=== PATIENT | male | born 1930 | race Caucasian/White ===

== ENCOUNTER 2018-04-27 07:22 | Emergency (ER) | payer MEDICARE ==
[2018-04-27 07:26] VITALS: TEMP 97.9
--- NOTE | 2018-04-27 08:03 | ED ---
General Adult HPI - General Chief complaint: ENT Stated complaint: Sore throat Time Seen by Provider: 04/27/18 07:41 Source: patient, family, RN notes reviewed Mode of arrival: ambulatory Limitations: no limitations - History of Present Illness Initial comments: Patient is a pleasant 87-year-old male presenting to the emergency Department with complaints of throat irritation. Patient states 3 days ago he was swallowing a large pill and felt it get stuck. Patient did get it loosened up with saltwater. Patient has felt irritation since that time. Patient has also noticed some increase in mucus production. Patient is able to tolerate oral intake. Patient does not have dyspnea. No history of similar symptoms previously. - Related Data Home Medications Medication Instructions Recorded Confirmed Aspirin 325 mg PO DAILY 04/15/15 04/27/18 Atenolol [Tenormin] 50 mg PO BID 04/15/15 04/27/18 Atorvastatin [Lipitor] 40 mg PO DAILY 04/15/15 04/27/18 Benazepril HCl [Lotensin] 20 mg PO DAILY 04/15/15 04/27/18 Cholecalciferol [Vitamin D3] 1,000 unit PO DAILY 04/15/15 04/27/18 Clopidogrel [Plavix] 75 mg PO DAILY 04/15/15 04/27/18 Isosorbide Mononitrate ER [Imdur] 30 mg PO DAILY 04/15/15 04/27/18 Multivitamin [Men's Multi-Vitamin] 1 tab PO DAILY 04/15/15 04/27/18 Niacin [Niaspan] 1,000 mg PO DAILY 04/15/15 04/27/18 Omeprazole [PriLOSEC] 20 mg PO DAILY 04/15/15 04/27/18 Vitamin E 1,000 unit PO DAILY 04/15/15 04/27/18 amLODIPine [Norvasc] 5 mg PO BID 04/15/15 04/27/18 glipiZIDE [Glucotrol] 5 mg PO DAILY 04/15/15 04/27/18 Nitroglycerin Sl Tabs [Nitrostat] 0.4 mg SUBLINGUAL Q5M PRN 05/14/16 04/27/18 hydrALAZINE HCL 25 mg PO BID 04/27/18 04/27/18 Allergies Allergy/AdvReac Type Severity Reaction Status Date / Time No Known Allergies Allergy Verified 04/27/18 07:25 Review of Systems ROS Statement: Those systems with pertinent positive or pertinent negative responses have been documented in the HPI. ROS Other: All systems not noted in ROS Statement are negative. Constitutional: Denies: fever Eyes: Denies: eye pain ENT: Reports: throat pain Respiratory: Denies: cough, dyspnea Cardiovascular: Denies: chest pain Endocrine: Denies: fatigue Gastrointestinal: Denies: abdominal pain Genitourinary: Denies: dysuria Musculoskeletal: Denies: back pain Skin: Denies: rash Neurological: Denies: weakness Past Medical History Past Medical History: Coronary Artery Disease (CAD), Diabetes Mellitus, GERD/ Reflux, Hyperlipidemia, Hypertension, Myocardial Infarction ([place]) Last Myocardial Infarction Date:: UNSURE History of Any Multi-Drug Resistant Organisms: None Reported Past Surgical History: Coronary Bypass/CABG Additional Past Surgical History / Comment(s): STATES 3 OR 4 BYPASS Past Anesthesia/Blood Transfusion Reactions: No Reported Reaction Past Psychological History: No Psychological Hx Reported Smoking Status: Former smoker Past Alcohol Use History: None Reported Past Drug Use History: None Reported General Exam Limitations: no limitations General appearance: alert, in no apparent distress Head exam: Present: atraumatic Eye exam: Present: normal appearance, PERRL ENT exam: Present: normal oropharynx Neck exam: Present: normal inspection, full ROM. Absent: tenderness, meningismus, lymphadenopathy Respiratory exam: Present: normal lung sounds bilaterally. Absent: respiratory distress, chest wall tenderness Cardiovascular Exam: Present: regular rate, normal rhythm, systolic murmur GI/Abdominal exam: Present: soft. Absent: tenderness Extremities exam: Present: normal inspection. Absent: pedal edema, calf tenderness Neurological exam: Present: alert Psychiatric exam: Present: normal affect, normal mood Skin exam: Present: normal color Course Vital Signs 04/27/18 07:22 Temperature 97.9 F Pulse Rate 70 Respiratory 22 Rate Blood Pressure 190/75 O2 Sat by Pulse 96 Oximetry Medical Decision Making - Medical Decision Making Patient reevaluated and resting comfortably in chair next to bed. Patient and updated on results and need for follow-up. - Radiology Data Radiology results: image reviewed (Soft tissue neck x-ray showed no acute process. Chest x-ray shows COPD. Chronic increased interstitial markings.) Disposition Clinical Impression: Esophageal abrasion Disposition: HOME SELF-CARE Condition: Stable Instructions: Esophageal Foreign Body (ED) Additional Instructions: Please follow-up with primary care physician and ENT next week. Return for difficulty breathing, not tolerating fluids, worsening symptoms or other concerns. Is patient prescribed a controlled substance at d/c from ED?: No Referrals: Charli Ramsay DO [Primary Care Provider] - 1-2 days Jairo Sexton MD [STAFF PHYSICIAN] - 1-2 days Time of Disposition: 08:57
--- NOTE | 2018-04-27 08:29 | XR ---
EXAMINATION TYPE: XR chest 2V DATE OF EXAM: 04/27/2018 HISTORY: Congestion. REFERENCE: Previous study dated 12/30/2013. FINDINGS: There has been a midline sternotomy. Heart size is upper limits of normal. There are coarse increased markings throughout the chest. These are chronic. The lungs are overinflated. There is armando e blunting of the left CP angle. The difficult to exclude a small left effusion. IMPRESSION: 1. COPD. 2. CHRONIC INCREASED MARKINGS MAY REFLECT CHRONIC BRONCHITIS. 3. I CANNOT EXCLUDE A SMALL LEFT EFFUSION.
--- NOTE | 2018-04-27 08:31 | XR ---
EXAMINATION TYPE: XR soft tissue neck , 2 VIEWS DATE OF EXAM ORDERED: 04/27/2018 HISTORY: congestion. COMPARISON: None. FINDINGS: Soft tissue views of the neck are unremarkable. Prevertebral soft tissues are normal. The epiglottis is normal. There is some calcification of the thyroid cartilage. There are degenerative ch anges in the cervical spine. IMPRESSION: UNREMARKABLE SOFT TISSUE VIEWS OF THE NECK.
[2018-04-27] MEDS ORDERED: DEXAMETHASONE SOD PHOSPHATE 10 MG/ML 1 ML VIAL IM STA (08:52)
[2018-04-27 09:14] VITALS: BP 173/79; PULSE 66; RESP 16
== END 2018-04-27 09:15 | disposition home or self-care (01) ==
LOC: EC 07:22
DX: S27.818A Other injury of esophagus (thoracic part), initial encounter (principal); I25.10 Atherosclerotic heart disease of native coronary artery without angina pectoris; E11.9 Type 2 diabetes mellitus without complications; E78.5 Hyperlipidemia, unspecified; I10 Essential (primary) hypertension; I25.2 Old myocardial infarction; Z95.1 Presence of aortocoronary bypass graft; Z87.891 Personal history of nicotine dependence; Z79.02 Long term (current) use of antithrombotics/antiplatelets; Z79.82 Long term (current) use of aspirin; Z79.84 Long term (current) use of oral hypoglycemic drugs; Z79.899 Other long term (current) drug therapy; X58.XXXA Exposure to other specified factors, initial encounter
CPT/HCPCS: 70360; 71046; 99283; 96372; J1100

== ENCOUNTER 2018-04-29 20:01 | Emergency (ER) | payer MEDICARE ==
--- NOTE | 2018-04-29 21:30 | XR ---
EXAMINATION TYPE: XR chest 2V DATE OF EXAM: 04/29/2018 COMPARISON: 04/27/2018 HISTORY: Chest pain TECHNIQUE: Frontal and lateral views of the chest are obtained. FINDINGS: There is coarsening of pulmonary interstitial markings. There is slight blunting of costop hrenic angles. Heart size is normal. There are sternal wires. Thoracic aorta is atheromatous. IMPRESSION: Small pleural effusions. Pulmonary fibrotic changes. No gross heart failure. No signific ant change.
[2018-04-29] MEDS ORDERED: AMOXICILLIN 500 MG CAP PO STA (22:42)
--- NOTE | 2018-04-29 22:47 | ED ---
General Adult HPI - General Chief complaint: Upper Respiratory Infection Stated complaint: sore throat & some swelling-revisit Time Seen by Provider: 04/29/18 21:00 Source: patient, RN notes reviewed Mode of arrival: ambulatory Limitations: no limitations - History of Present Illness Initial comments: This is an 87-year-old male who presents emergency Department complaining of a sore throat for 4 days. Patient states it's worse in the morning than at night. Patient also states he has quite a bit of drainage such that in the morning he coughs up a lot of sputum. Patient denies any difficulty breathing or shortness of breath. Patient denies any chest pain. Patient denies any fever or chills. Patient states that sore throat has been ongoing and not improving so decided come to the emergency department. Patient is somewhat of a poor historian seems to get a lot of information incorrect and the as to correct. - Related Data Home Medications Medication Instructions Recorded Confirmed Aspirin 325 mg PO DAILY 04/15/15 04/27/18 Atenolol [Tenormin] 50 mg PO BID 04/15/15 04/27/18 Atorvastatin [Lipitor] 40 mg PO DAILY 04/15/15 04/27/18 Benazepril HCl [Lotensin] 20 mg PO DAILY 04/15/15 04/27/18 Cholecalciferol [Vitamin D3] 1,000 unit PO DAILY 04/15/15 04/27/18 Clopidogrel [Plavix] 75 mg PO DAILY 04/15/15 04/27/18 Isosorbide Mononitrate ER [Imdur] 30 mg PO DAILY 04/15/15 04/27/18 Multivitamin [Men's Multi-Vitamin] 1 tab PO DAILY 04/15/15 04/27/18 Niacin [Niaspan] 1,000 mg PO DAILY 04/15/15 04/27/18 Omeprazole [PriLOSEC] 20 mg PO DAILY 04/15/15 04/27/18 Vitamin E 1,000 unit PO DAILY 04/15/15 04/27/18 amLODIPine [Norvasc] 5 mg PO BID 04/15/15 04/27/18 Nitroglycerin Sl Tabs [Nitrostat] 0.4 mg SUBLINGUAL Q5M PRN 05/14/16 04/27/18 hydrALAZINE HCL 25 mg PO BID 04/27/18 04/27/18 glipiZIDE XL [Glucotrol Xl] 5 mg PO DAILY 04/29/18 04/29/18 Previous Rx's Medication Instructions Recorded Amoxicillin 500 mg PO Q8H #30 capsule 04/29/18 Allergies Allergy/AdvReac Type Severity Reaction Status Date / Time No Known Allergies Allergy Verified 04/29/18 22:43 Review of Systems ROS Statement: Those systems with pertinent positive or pertinent negative responses have been documented in the HPI. ROS Other: All systems not noted in ROS Statement are negative. Past Medical History Past Medical History: Coronary Artery Disease (CAD), Diabetes Mellitus, GERD/ Reflux, Hyperlipidemia, Hypertension, Myocardial Infarction ([place]) Last Myocardial Infarction Date:: UNSURE History of Any Multi-Drug Resistant Organisms: None Reported Past Surgical History: Coronary Bypass/CABG Additional Past Surgical History / Comment(s): STATES 3 OR 4 BYPASS Past Anesthesia/Blood Transfusion Reactions: No Reported Reaction Past Psychological History: No Psychological Hx Reported Smoking Status: Former smoker Past Alcohol Use History: None Reported Past Drug Use History: None Reported General Exam - General Exam Comments Initial Comments: GENERAL: Patient is well-developed and well-nourished. Patient is nontoxic and well- hydrated and is in no acute distress. ENT: Neck is soft and supple. No significant lymphadenopathy is noted. Oropharynx is erythematous. Moist mucous membranes. Neck has full range of motion without eliciting any pain. EYES: The sclera were anicteric and conjunctiva were pink and moist. Extraocular movements were intact and pupils were equal round and reactive to light. Eyelids were unremarkable. PULMONARY: Unlabored respirations. Good breath sounds bilaterally. No audible rales rhonchi or wheezing was noted. CARDIOVASCULAR: There is a regular rate and rhythm without any murmurs gallops or rubs. SKIN: Skin is clear with no lesions or rashes and otherwise unremarkable. NEUROLOGIC: Patient is alert and oriented 2. Cranial nerves II through XII are grossly intact. Motor and sensory are also intact. Normal speech, volume and content. Symmetrical smile. MUSCULOSKELETAL: Normal extremities with adequate strength and full range of motion. . LYMPHATICS: No significant lymphadenopathy is noted PSYCHIATRIC: Normal psychiatric evaluation. Normal interpersonal interactions appears functionally intact in deals appropriately with others. No signs of depression. No signs of anxiety. Limitations: no limitations Course Vital Signs 04/29/18 20:35 Temperature 97.9 F Pulse Rate 69 Respiratory 20 Rate Blood Pressure 160/65 O2 Sat by Pulse 95 Oximetry Medical Decision Making - Lab Data Lab Results 04/29/18 Range/Units 20:41 Group A Strep Rapid Negative (Negative) Disposition Clinical Impression: Pharyngitis Disposition: HOME SELF-CARE Condition: Good Instructions: Pharyngitis (ED) Prescriptions: Amoxicillin 500 mg PO Q8H #30 capsule Is patient prescribed a controlled substance at d/c from ED?: No Referrals: Charli Ramsay DO [Primary Care Provider] - 1-2 days Time of Disposition: 22:47
[2018-04-29 23:09] VITALS: BP 161/73; PULSE 61; RESP 18; TEMP 97.1
== END 2018-04-29 23:14 | disposition home or self-care (01) ==
LOC: EC 20:01
DX: J02.9 Acute pharyngitis, unspecified (principal); E78.5 Hyperlipidemia, unspecified; I10 Essential (primary) hypertension; I25.10 Atherosclerotic heart disease of native coronary artery without angina pectoris; E11.9 Type 2 diabetes mellitus without complications; K21.9 Gastro-esophageal reflux disease without esophagitis; Z87.891 Personal history of nicotine dependence; Z79.02 Long term (current) use of antithrombotics/antiplatelets; Z79.82 Long term (current) use of aspirin; Z79.84 Long term (current) use of oral hypoglycemic drugs; Z79.899 Other long term (current) drug therapy
CPT/HCPCS: 71046; 87081; 87430; 99283

== ENCOUNTER 2018-05-04 11:50 | Inpatient (IN) | payer MEDICARE ==
[2018-05-04] MEDS ORDERED: ASPIRIN 81 MG PO STA (12:16)
[2018-05-04] MEDS ORDERED: SODIUM CHLORIDE 0.9% 1,000 ML IV STA (12:16)
--- NOTE | 2018-05-04 12:21 | ED ---
General Adult HPI - General Chief complaint: Chest Pain Stated complaint: SOB Source: patient Mode of arrival: wheelchair Limitations: physical limitation - History of Present Illness Initial comments: Dictation was produced using [employer] dictation software. please excuse any grammatical, word or spelling errors. Chief Complaint: 87-year-old male past medical history of coronary artery disease, dyslipidemia, hypertension, NM presents with chest pressure History of Present Illness: Patient reports that he's been having this chest pressure for approximately 3 weeks. Patient reports that he was here 4 days ago for chief complaint of sore throat and thought to be caused by swallowing a large pill. Patient reports that he has chest pressure that radiates across the anterior portion of his chest. Denies any relation to the shoulders or the neck. Denies any associated diaphoresis. Patient has history of CABG. Patient has multiple comorbidities. The ROS documented in this emergency department record has been reviewed and confirmed by me. Those systems with pertinent positive or negative responses have been documented in the HPI. All other systems are other negative and/or noncontributory. - Related Data Home Medications Medication Instructions Recorded Confirmed Aspirin 325 mg PO DAILY 04/15/15 05/04/18 Atenolol [Tenormin] 50 mg PO BID 04/15/15 05/04/18 Atorvastatin [Lipitor] 40 mg PO DAILY 04/15/15 05/04/18 Benazepril HCl [Lotensin] 20 mg PO DAILY 04/15/15 05/04/18 Cholecalciferol [Vitamin D3] 1,000 unit PO DAILY 04/15/15 05/04/18 Clopidogrel [Plavix] 75 mg PO DAILY 04/15/15 05/04/18 Isosorbide Mononitrate ER [Imdur] 30 mg PO DAILY 04/15/15 05/04/18 Multivitamin [Men's Multi-Vitamin] 1 tab PO DAILY 04/15/15 05/04/18 Niacin [Niaspan] 1,000 mg PO DAILY 04/15/15 05/04/18 Omeprazole [PriLOSEC] 20 mg PO BID 04/15/15 05/04/18 Vitamin E 1,000 unit PO DAILY 04/15/15 05/04/18 amLODIPine [Norvasc] 5 mg PO BID 04/15/15 05/04/18 Nitroglycerin Sl Tabs [Nitrostat] 0.4 mg SUBLINGUAL Q5M PRN 05/14/16 05/04/18 hydrALAZINE HCL 25 mg PO BID 04/27/18 05/04/18 glipiZIDE XL [Glucotrol Xl] 5 mg PO DAILY 04/29/18 05/04/18 Previous Rx's Medication Instructions Recorded Amoxicillin 500 mg PO Q8H #30 capsule 04/29/18 Allergies Allergy/AdvReac Type Severity Reaction Status Date / Time No Known Allergies Allergy Verified 05/04/18 12:32 Review of Systems ROS Statement: Those systems with pertinent positive or pertinent negative responses have been documented in the HPI. ROS Other: All systems not noted in ROS Statement are negative. Past Medical History Past Medical History: Coronary Artery Disease (CAD), Diabetes Mellitus, GERD/ Reflux, Hyperlipidemia, Hypertension, Myocardial Infarction ([place]) Last Myocardial Infarction Date:: UNSURE History of Any Multi-Drug Resistant Organisms: None Reported Past Surgical History: Coronary Bypass/CABG Additional Past Surgical History / Comment(s): STATES 3 OR 4 BYPASS Past Anesthesia/Blood Transfusion Reactions: No Reported Reaction Past Psychological History: No Psychological Hx Reported Smoking Status: Former smoker Past Alcohol Use History: None Reported Past Drug Use History: None Reported General Exam - General Exam Comments Initial Comments: PHYSICAL EXAM: General Impression: Alert and oriented x3, not in acute distress HEENT: Normocephalic atraumatic, extra-ocular movements intact, pupils equal and reactive to light bilaterally, mucous membranes moist. Cardiovascular: Heart regular rate and rhythm, S1&S2 audible, no murmurs, rubs or gallops Chest: Lungs clear to auscultation bilaterally, no rhonchi, no wheeze, no rales Abdomen: Bowel sounds present, abdomen soft, non-tender, non-distended, no organomegaly Musculoskeletal: Pulses present and equal in all extremities, no peripheral edema Motor: Power 5/5 bilaterally, no focal deficits noted Neurological: CN II-XII grossly intact, no focal motor or sensory deficits noted Skin: Intact with no visualized rashes Psych: Normal affect and mood Limitations: physical limitation Course Vital Signs 05/04/18 05/04/18 11:53 12:58 Temperature 97.8 F Pulse Rate 74 63 Respiratory 20 17 Rate Blood Pressure 176/72 170/72 O2 Sat by Pulse 95 96 Oximetry Medical Decision Making - Medical Decision Making ED course: 87-year-old male with chief complaint of chest pressure. Vital signs upon arrival shows elevated blood pressure 176/72, pulse vital signs within acceptable limits. Laboratory evaluation obtained. Patient has normal CBC. Coag Panel Unremarkable. Metabolic Panel Shows Findings within Acceptable Limits. Patient Has Troponin of 0.034. Prematurity Peptide Is 10,600. Patient Denies History of Weak Heart or Congestive Heart Failure. Furthermore, Patient Denies Ever Having Had an Ultrasound of His Heart. Clinical Presentation Consistent with New-Onset CHF Likely Secondary to Chronic Ischemia. Patient Be Admitted to Internal Medicine with Consultation to Cardiology. Patient Given 40 Mg of IV Lasix. Patient Be Admitted for Gentle Diuresis, Echocardiogram and cardiology consultation. EKG interpretation: Ventricular rate 68. Normal sinus rhythm. WI interval 202 , QRS 122, QTC 484 No WI prolongation, no QTC prolongation, no ST or T-wave changes noted. EKG compared to 2013 showing nonspecific changes. - Lab Data Result diagrams: 05/04/18 12:15 05/04/18 12:15 Lab Results 05/04/18 05/04/18 05/04/18 Range/Units 12:15 12:15 12:15 WBC 6.8 (3.8-10.6) k/uL RBC 3.77 L (4.30-5.90) m/uL Hgb 11.8 L (13.0-17.5) gm/dL Hct 36.9 L (39.0-53.0) % MCV 97.7 (80.0-100.0) fL MCH 31.4 (25.0-35.0) pg MCHC 32.1 (31.0-37.0) g/dL RDW 14.3 (11.5-15.5) % Plt Count 163 (150-450) k/uL Neutrophils % 61 % Lymphocytes % 20 % Monocytes % 12 % Eosinophils % 4 % Basophils % 0 % Neutrophils # 4.1 (1.3-7.7) k/uL Lymphocytes # 1.3 (1.0-4.8) k/uL Monocytes # 0.8 (0-1.0) k/uL Eosinophils # 0.3 (0-0.7) k/uL Basophils # 0.0 (0-0.2) k/uL Hypochromasia Slight PT (9.0-12.0) sec INR (<1.2) APTT (22.0-30.0) sec Sodium 142 (137-145) mmol/L Potassium 4.4 (3.5-5.1) mmol/L Chloride 114 H (98-107) mmol/L Carbon Dioxide 19 L (22-30) mmol/L Anion Gap 9 mmol/L BUN 26 H (9-20) mg/dL Creatinine 1.50 H (0.66-1.25) mg/dL Est GFR (CKD-EPI)AfAm 47 (>60 ml/min/1.73 sqM) Est GFR (CKD-EPI)NonAf 41 (>60 ml/min/1.73 sqM) Glucose 108 H (74-99) mg/dL Calcium 9.6 (8.4-10.2) mg/dL Magnesium 2.1 (1.6-2.3) mg/dL Total Bilirubin 1.0 (0.2-1.3) mg/dL AST 46 (17-59) U/L ALT 44 (21-72) U/L Alkaline Phosphatase 89 (38-126) U/L Total Creatine Kinase 129 (55-170) U/L CK-MB (CK-2) 2.1 (0.0-2.4) ng/mL CK-MB (CK-2) Rel Index 1.6 Troponin I 0.034 (0.000-0.034) ng/mL NT-Pro-B Natriuret Pep pg/mL Total Protein 6.9 (6.3-8.2) g/dL Albumin 3.9 (3.5-5.0) g/dL 05/04/18 05/04/18 Range/Units 12:15 12:15 WBC (3.8-10.6) k/uL RBC (4.30-5.90) m/uL Hgb (13.0-17.5) gm/dL Hct (39.0-53.0) % MCV (80.0-100.0) fL MCH (25.0-35.0) pg MCHC (31.0-37.0) g/dL RDW (11.5-15.5) % Plt Count (150-450) k/uL Neutrophils % % Lymphocytes % % Monocytes % % Eosinophils % % Basophils % % Neutrophils # (1.3-7.7) k/uL Lymphocytes # (1.0-4.8) k/uL Monocytes # (0-1.0) k/uL Eosinophils # (0-0.7) k/uL Basophils # (0-0.2) k/uL Hypochromasia PT 11.4 (9.0-12.0) sec INR 1.2 H (<1.2) APTT 24.3 (22.0-30.0) sec Sodium (137-145) mmol/L Potassium (3.5-5.1) mmol/L Chloride (98-107) mmol/L Carbon Dioxide (22-30) mmol/L Anion Gap mmol/L BUN (9-20) mg/dL Creatinine (0.66-1.25) mg/dL Est GFR (CKD-EPI)AfAm (>60 ml/min/1.73 sqM) Est GFR (CKD-EPI)NonAf (>60 ml/min/1.73 sqM) Glucose (74-99) mg/dL Calcium (8.4-10.2) mg/dL Magnesium (1.6-2.3) mg/dL Total Bilirubin (0.2-1.3) mg/dL AST (17-59) U/L ALT (21-72) U/L Alkaline Phosphatase (38-126) U/L Total Creatine Kinase (55-170) U/L CK-MB (CK-2) (0.0-2.4) ng/mL CK-MB (CK-2) Rel Index Troponin I (0.000-0.034) ng/mL NT-Pro-B Natriuret Pep 98365 pg/mL Total Protein (6.3-8.2) g/dL Albumin (3.5-5.0) g/dL Disposition Clinical Impression: Congestive heart failure Disposition: ADMITTED IP TO THIS HOSP Condition: Fair Referrals: Charli Ramsay DO [Primary Care Provider] - 1-2 days Time of Disposition: 13:40
[2018-05-04 12:30] LABS: Basophils % (A) 0 %; Eosinophils # (A) 0.3 k/uL (0-0.7); Eosinophils % (A) 4 %; HCT 36.9 % (39.0-53.0); HGB 11.8 gm/dL (13.0-17.5); Hypochromasia Slight; Lymphocytes # (A) 1.3 k/uL (1.0-4.8); Lymphocytes % (A) 20 %; MCH 31.4 pg (25.0-35.0); MCHC 32.1 g/dL (31.0-37.0); MCV 97.7 fL (80.0-100.0); Mean Platelet Volume 8.7; Monocytes # (A) 0.8 k/uL (0-1.0); Monocytes % (A) 12 %; Neutrophils # (A) 4.1 k/uL (1.3-7.7); Neutrophils % (A) 61 %; Platelet Count 163 k/uL (150-450); RBC 3.77 m/uL (4.30-5.90); RDW 14.3 % (11.5-15.5); WBC 6.8 k/uL (3.8-10.6)
[2018-05-04 12:41] LABS: Albumin 3.9 g/dL (3.5-5.0); Calcium 9.6 mg/dL (8.4-10.2); Magnesium 2.1 mg/dL (1.6-2.3); Potassium 4.4 mmol/L (3.5-5.1); Total Protein 6.9 g/dL (6.3-8.2)
[2018-05-04 12:43] LABS: INR 1.2 (<1.2); Partial Thromboplastin Time 24.3 sec (22.0-30.0); Prothrombin Time 11.4 sec (9.0-12.0)
--- NOTE | 2018-05-04 13:05 | XR ---
EXAMINATION TYPE: XR chest 2V DATE OF EXAM: 05/04/2018 HISTORY: Chest Pain. REFERENCE: Previous study dated 04/29/2018. FINDINGS: There has been a previous midline sternotomy. The lungs are overinflated. The heart is upper limits of normal in size. There is a small left effusi on. There is chronic interstitial change. There has developed a questionable left upper lobe infiltra te. IMPRESSION: 1. COPD. 2. BORDERLINE CARDIOMEGALY. 3. QUESTIONABLE LEFT UPPER LOBE INFILTRATE. 4. SMALL LEFT EFFUSION.
[2018-05-04 13:11] LABS: Creatine Kinase MB 2.1 ng/mL (0.0-2.4); Troponin I 0.034 ng/mL (0.000-0.034)
[2018-05-04] MEDS ORDERED: FUROSEMIDE 10 MG/ML 4 ML VIAL IV STA (13:21)
[2018-05-04] MEDS ORDERED: NALOXONE 0.4 MG/ML 1 ML VIAL IV PRN (13:41)
[2018-05-04] MEDS ORDERED: HEPARIN SODIUM,PORCINE 5,000 UNIT/ML 1 ML VIAL SQ SCH (16:00)
[2018-05-04] MEDS ORDERED: NITROGLYCERIN SL TABS 0.4 MG TAB SUBLINGUAL PRN (17:46)
[2018-05-04 18:30] VITALS: BMI 27.3
--- NOTE | 2018-05-04 19:00 | P.HPIM ---
History of Present Illness Patient is a pleasant 87-year-old gentleman shortness of breath not a very good historian I'm unable to get a clear history whether patient has orthopnea and PND. Patient will also comparing of chest pressure-like sensation across the chest lasted for a few hours nonradiating and not associated with food not is nonpleuritic in nature no associated diaphoresis. Patient has a highly elevated BNP does not have any significant JVD but does have severe pedal edema , chest x-ray did not show any significant infiltrate consistent with CHF does have with the pleural effusion patient denied any significant cough patient denied any fever chills. Review of Systems REVIEW OF SYSTEMS: CONSTITUTIONAL: No fever, no malaise, no fatigue. HEENT: No recent visual problems or hearing problems. Denied any sore throat. CARDIOVASCULAR: no palpitations, no syncope. PULMONARY: no hemoptysis. GASTROINTESTINAL: No diarrhea, no nausea, no vomiting, no abdominal pain. Normoactive bowel sounds. NEUROLOGICAL: No headaches, no weakness, no numbness. HEMATOLOGICAL: Denies any bleeding or petechiae. GENITOURINARY: Denies any burning micturition, frequency, or urgency. MUSCULOSKELETAL/RHEUMATOLOGICAL: Denies any joint pain, swelling, or any muscle pain. ENDOCRINE: Denies any polyuria or polydipsia. The rest of the 14-point review of systems is negative. Past Medical History Past Medical History: Coronary Artery Disease (CAD), Diabetes Mellitus, GERD/ Reflux, Hyperlipidemia, Hypertension, Myocardial Infarction ([place]) Last Myocardial Infarction Date:: 1949 History of Any Multi-Drug Resistant Organisms: None Reported Past Surgical History: Coronary Bypass/CABG Additional Past Surgical History / Comment(s): STATES 3 OR 4 BYPASS Past Anesthesia/Blood Transfusion Reactions: No Reported Reaction Past Psychological History: No Psychological Hx Reported Smoking Status: Former smoker Past Alcohol Use History: None Reported Past Drug Use History: None Reported - Past Family History Brother(s) Family Medical History: Myocardial Infarction ([place]) Medications and Allergies Home Medications Medication Instructions Recorded Confirmed Type Aspirin 325 mg PO DAILY 04/15/15 05/04/18 History Atenolol [Tenormin] 50 mg PO BID 04/15/15 05/04/18 History Atorvastatin [Lipitor] 40 mg PO DAILY 04/15/15 05/04/18 History Benazepril HCl [Lotensin] 20 mg PO DAILY 04/15/15 05/04/18 History Cholecalciferol [Vitamin D3] 1,000 unit PO DAILY 04/15/15 05/04/18 History Clopidogrel [Plavix] 75 mg PO DAILY 04/15/15 05/04/18 History Isosorbide Mononitrate ER [Imdur] 30 mg PO DAILY 04/15/15 05/04/18 History Multivitamin [Men's Multi-Vitamin] 1 tab PO DAILY 04/15/15 05/04/18 History Niacin [Niaspan] 1,000 mg PO DAILY 04/15/15 05/04/18 History Omeprazole [PriLOSEC] 20 mg PO BID 04/15/15 05/04/18 History Vitamin E 1,000 unit PO DAILY 04/15/15 05/04/18 History amLODIPine [Norvasc] 5 mg PO BID 04/15/15 05/04/18 History Nitroglycerin Sl Tabs [Nitrostat] 0.4 mg SUBLINGUAL Q5M PRN 05/14/16 05/04/18 History hydrALAZINE HCL 25 mg PO BID 04/27/18 05/04/18 History Amoxicillin 500 mg PO Q8H #30 capsule 04/29/18 05/04/18 Rx glipiZIDE XL [Glucotrol Xl] 5 mg PO DAILY 04/29/18 05/04/18 History Allergies Allergy/AdvReac Type Severity Reaction Status Date / Time No Known Allergies Allergy Verified 05/04/18 12:32 Physical Exam Vitals: Vital Signs Temp Pulse Pulse Resp BP BP Pulse Ox 05/04/18 18:14 96.8 F L 79 18 178/81 95 05/04/18 16:29 68 17 169/84 96 05/04/18 15:13 61 17 154/61 95 05/04/18 14:10 96.8 F L 79 18 178/81 95 05/04/18 13:55 62 17 169/70 95 05/04/18 12:58 63 17 170/72 96 05/04/18 11:53 97.8 F 74 20 176/72 95 Intake and Output 05/04/18 05/04/18 05/04/18 06:59 14:59 22:59 Intake Total 1000 Balance 1000 Intake: Amount of Fluid Infused ( 1000 ml) Other: Weight 79.379 kg PHYSICAL EXAMINATION: GENERAL: The patient is alert and oriented x3, not in any acute distress. Well developed, well nourished. HEENT: Pupils are round and equally reacting to light. EOMI. No scleral icterus. No conjunctival pallor. Normocephalic, atraumatic. No pharyngeal erythema. No thyromegaly. CARDIOVASCULAR: S1 and S2 present. No murmurs, rubs, or gallops. PULMONARY: Chest is clear to auscultation, no wheezing or crackles. His no JVD there may be an S3. ABDOMEN: Soft, nontender, nondistended, normoactive bowel sounds. No palpable organomegaly. MUSCULOSKELETAL: No joint swelling or deformity. EXTREMITIES: No cyanosis, clubbing, significant 3+ pitting pedal edema NEUROLOGICAL: Gross neurological examination did not reveal any focal deficits. SKIN: No rashes. Results CBC & Chem 7: 05/04/18 12:15 05/04/18 12:15 Labs: Abnormal Lab Results - Last 24 Hours (Table) 05/04/18 05/04/18 05/04/18 Range/Units 12:15 12:15 12:15 RBC 3.77 L (4.30-5.90) m/uL Hgb 11.8 L (13.0-17.5) gm/dL Hct 36.9 L (39.0-53.0) % INR 1.2 H (<1.2) Chloride 114 H (98-107) mmol/L Carbon Dioxide 19 L (22-30) mmol/L BUN 26 H (9-20) mg/dL Creatinine 1.50 H (0.66-1.25) mg/dL Glucose 108 H (74-99) mg/dL Thrombosis Risk Factor Assmnt - Choose All That Apply Any of the Below Risk Factors Present?: No Each Risk Factor Represents 3 Points: Age 75 years or older Thrombosis Risk Factor Assessment Total Risk Factor Score: 3 Thrombosis Risk Factor Assessment Level: Moderate Risk Assessment and Plan Plan: -Shortness of breath: Etiology is unknown patient was comparing of chest pain we 'll obtain troponins and EKGs cardiology was consulted. -Chest pain: Management as mentioned above -Volume overload with pedal edema although no clearcut JVD will obtain echocardiogram patient has a highly elevated BNP patient may have congestive heart failure or right-sided heart failure since his wall only overloaded are good and give him Lasix check his creatinine. -Renal failure: Mostly chronic kidney disease stage III, his previous creatinine was around 1.2 now around 1.5 and may be a competent of acute renal failure as well repeat the basic metabolic profile tomorrow if renal failure is secondary to volume overload expected to improve with Lasix. 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
[2018-05-04] MEDS ORDERED: hydrALAZINE HCL 25 MG TAB PO PRN (19:15)
[2018-05-04] MEDS: amLODIPine 5 MG TAB PO SCH (20:31)
[2018-05-04] MEDS: ATENOLOL 50 MG TAB PO SCH (20:31)
[2018-05-04] MEDS: hydrALAZINE HCL 25 MG TAB PO SCH (20:31)
[2018-05-04] MEDS: FAMOTIDINE 20 MG TAB PO SCH (20:31)
[2018-05-04] MEDS ORDERED: TEMAZEPAM 15 MG CAP PO PRN (20:58)
[2018-05-04 21:18] LABS: Glucose,Whole Blood 89 mg/dL (75-99)
[2018-05-04] MEDS: INSULIN ASPART 100 UNIT/ML 1 ML 10 ML VIAL SQ SCH (21:19)
[2018-05-04] MEDS: FUROSEMIDE 10 MG/ML 4 ML VIAL IV SCH (23:22)
[2018-05-04] MEDS: HEPARIN SODIUM,PORCINE 5,000 UNIT/ML 1 ML VIAL SQ SCH (23:22)
[2018-05-05] MEDS ORDERED: IPRATROPIUM-ALBUTEROL 3 ML NEB INHALATION PRN (01:18)
[2018-05-05 02:45] LABS: ABG Base Excess -6.2 mmol/L; ABG HCO3 19 mmol/L (21-25); ABG Oxygen Saturation 94.4 % (94-97); ABG PCO2 33 mmHg (35-45); ABG PH 7.37 (7.35-7.45); ABG PO2 68 mmHg (83-108); ABG TCO2 20 mmol/L (19-24)
[2018-05-05 05:46] LABS: Glucose,Whole Blood 67 mg/dL (75-99)
[2018-05-05] MEDS: INSULIN ASPART 100 UNIT/ML 1 ML 10 ML VIAL SQ SCH ×4 (06:00→20:54)
[2018-05-05 06:06] LABS: Glucose,Whole Blood 85 mg/dL (75-99)
[2018-05-05 06:49] LABS: Calcium 9.3 mg/dL (8.4-10.2); Potassium 4.5 mmol/L (3.5-5.1)
[2018-05-05] MEDS ORDERED: PANTOPRAZOLE 40 MG TABLET PO SCH (07:30)
[2018-05-05] MEDS: FUROSEMIDE 10 MG/ML 4 ML VIAL IV SCH ×3 (07:53→22:49)
[2018-05-05] MEDS: amLODIPine 5 MG TAB PO SCH ×2 (07:53→20:56)
[2018-05-05] MEDS: HEPARIN SODIUM,PORCINE 5,000 UNIT/ML 1 ML VIAL SQ SCH ×3 (07:53→22:50)
[2018-05-05] MEDS: VITAMIN E (DL,TOCOPHERYL ACET) 400 UNIT CAP PO SCH (07:54)
[2018-05-05] MEDS: ASPIRIN 81 MG PO SCH (07:54)
[2018-05-05] MEDS: ATENOLOL 50 MG TAB PO SCH ×2 (07:54→20:57)
[2018-05-05] MEDS: ATORVASTATIN 40 MG TAB PO SCH (07:54)
[2018-05-05] MEDS: CHOLECALCIFEROL 1,000 UNIT TAB PO SCH (07:55)
[2018-05-05] MEDS: FAMOTIDINE 20 MG TAB PO SCH ×2 (07:55→20:56)
[2018-05-05] MEDS: CLOPIDOGREL 75 MG TAB PO SCH (07:55)
[2018-05-05] MEDS: ISOSORBIDE MONONITRATE ER 30 MG TAB.ER.24H PO SCH (07:56)
[2018-05-05] MEDS: NIACIN TR 500 MG CAPSULE.ER PO SCH (07:56)
[2018-05-05] MEDS: hydrALAZINE HCL 25 MG TAB PO SCH ×2 (07:56→21:00)
[2018-05-05] MEDS ORDERED: LISINOPRIL 20 MG TAB PO SCH (09:00)
[2018-05-05] MEDS ORDERED: ASPIRIN 325 MG TAB PO SCH (09:00)
[2018-05-05 11:36] LABS: Glucose,Whole Blood 69 mg/dL (75-99)
[2018-05-05 11:59] LABS: Glucose,Whole Blood 96 mg/dL (75-99)
[2018-05-05] MEDS: MULTIVITAMINS, THERA 1 EACH TAB PO SCH (13:25)
--- NOTE | 2018-05-05 14:40 | CONS ---
CONSULTATION Mr. Goodman is an 87-year-old male who presented with symptoms of progressive dyspnea and tightness in the chest has been going on for the last few weeks. He was noted to be in congestive heart failure on presentation. He denies any PND nor orthopnea, but he has noted worsening peripheral edema. He denies any dizziness or palpitation and no syncope. His coronary risk factors include diabetes, hypertension and hyperlipidemia. He has been coughing greenish sputum. He has a known history of coronary artery disease with prior myocardial infarction and coronary artery bypass grafting. MEDICATION: At home includes hydralazine 25 mg twice a day, glipizide 5 mg daily, Norvasc 5 mg twice a day, omeprazole, Niaspan, isosorbide mononitrate 30 mg daily, Plavix 75 mg daily, benazepril 20 mg daily, atenolol 50 mg twice a day, aspirin. REVIEW OF SYSTEMS: RESPIRATORY SYSTEM: He had dyspnea on exertion and a cough. No wheezing. GI SYSTEM: No recent GI bleed. No peptic ulcer disease. SYSTEM: No dysuria or hematuria. NERVOUS SYSTEM: No stroke or seizure. PHYSICAL EXAMINATION: He is an 87-year-old male, alert, no apparent distress. Blood pressure running in the 160s to 170s. HEAD: Normocephalic. EYES: Sclerae anicteric. NECK: Good upstroke. No bruit. LUNGS: A few crackles at the bases. HEART: Regular rate and rhythm. S1, S2. No S3 with systolic murmur. No diastolic murmur. No rub. ABDOMEN: Soft, nontender. Positive bowel sounds. EXTREMITIES: +1 to 2 edema bilaterally. LAB DATA: Lab data revealed a BUN and creatinine of 23 and 1.54, potassium 4.5. Hemoglobin of 11.8. His troponin 0.034, 0.035 [place] 0.045[place] [id number]. His EKG revealed a sinus mechanism, left axis deviation with left bundle branch block. His chest x-ray has revealed small effusion with questionable infiltrate. IMPRESSION: 1. Progressive symptoms of dyspnea with element of congestive heart failure. The evaluation of left ventricular systolic function is not available to me at this point. 2. History of coronary artery disease. 3. Mild elevation of troponin, most likely presenting a type 2 event. 4. Questionable pneumonia. 5. Hypertension. 6. Hyperlipidemia. 7. History of esophageal strictures. 8. Chronic kidney disease. RECOMMENDATION: From the cardiac standpoint, I will obtain echocardiogram with Doppler. Patient has been on IV Lasix and will follow his renal function closely. I will adjust his antihypertensive regimen, increase his level of activity and depending on his progress, further recommendation will be made. Thank you for this consult. We will follow with you. SARAN / AILEEN: [id number] /
--- NOTE | 2018-05-05 14:55 | P.PN ---
Subjective 87-year-old admitted with acute hypoxic respiratory failure secondary to CHF exacerbation patient the respiratory status as well as in the last night because of which obtained an ABG which showed hypoxic respiratory failure consulted pulmonary. Patient the significantly improved since last night to today morning continue with IV Lasix patient urinated quite a bit little edema improved patient is feeling better today Constitutional: Denied any fatigue denied any fever. Cardio vascular: denied any chest pain, palpitations Gastrointestinal denied any nausea vomiting Pulmonary: Denied any shortness of breath cough Neurologic denied any new focal deficits Objective - Vital Signs Vital signs: Vital Signs Temp 97.5 F L 05/05/18 12:00 Pulse 70 05/05/18 12:00 Resp 20 05/05/18 12:00 BP 166/70 05/05/18 12:00 Pulse Ox 94 L 05/05/18 12:00 Intake & Output 05/04/18 05/05/18 05/05/18 18:59 06:59 18:59 Intake Total 1000 840 240 Output Total 1200 150 Balance 1000 -360 90 Weight 79.379 kg 79.5 kg Intake: Amount of Fluid Infused ( 1000 ml) Oral 840 240 Output: Urine 1200 150 Other: Voiding Method Urinal Urinal # Voids 2 1 - Exam PHYSICAL EXAMINATION: GENERAL: The patient is alert and oriented x3, not in any acute distress. Well developed, well nourished. HEENT: Pupils are round and equally reacting to light. EOMI. No scleral icterus. No conjunctival pallor. Normocephalic, atraumatic. No pharyngeal erythema. No thyromegaly. CARDIOVASCULAR: S1 and S2 present. No murmurs, rubs, or gallops. PULMONARY: Chest is clear to auscultation, no wheezing or crackles. His no JVD there may be an S3. ABDOMEN: Soft, nontender, nondistended, normoactive bowel sounds. No palpable organomegaly. MUSCULOSKELETAL: No joint swelling or deformity. EXTREMITIES: No cyanosis, clubbing, or pedal edema improved NEUROLOGICAL: Gross neurological examination did not reveal any focal deficits. SKIN: No rashes. - Labs CBC & Chem 7: 05/04/18 12:15 05/05/18 06:17 Labs: Abnormal Lab Results - Last 24 Hours (Table) 05/04/18 05/05/18 05/05/18 Range/Units 18:59 00:19 02:40 ABG pCO2 33 L (35-45) mmHg ABG pO2 68 L (83-108) mmHg ABG HCO3 19 L (21-25) mmol/L Chloride (98-107) mmol/L Carbon Dioxide (22-30) mmol/L BUN (9-20) mg/dL Creatinine (0.66-1.25) mg/dL POC Glucose (mg/dL) (75-99) mg/dL Troponin I 0.035 H* 0.045 H* (0.000-0.034) ng/mL 05/05/18 05/05/18 05/05/18 Range/Units 05:45 06:17 11:34 ABG pCO2 (35-45) mmHg ABG pO2 (83-108) mmHg ABG HCO3 (21-25) mmol/L Chloride 113 H (98-107) mmol/L Carbon Dioxide 20 L (22-30) mmol/L BUN 23 H (9-20) mg/dL Creatinine 1.54 H (0.66-1.25) mg/dL POC Glucose (mg/dL) 67 L 69 L (75-99) mg/dL Troponin I (0.000-0.034) ng/mL Assessment and Plan Plan: -Shortness of breath: Congestive heart failure chronic systolic dysfunction with acute exacerbation ejection fraction is not available -Chest pain: Management as mentioned above -Volume overload with pedal edema although no clearcut JVD will obtain echocardiogram patient has a highly elevated BNP patient may have congestive heart failure or right-sided heart failure intubating echocardiogram -Renal failure: Mostly chronic kidney disease stage III, his previous creatinine was around 1.2 now around 1.5 patient's creatinine remained stable at 1. 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
[2018-05-05 16:25] LABS: Glucose,Whole Blood 99 mg/dL (75-99)
[2018-05-05 20:52] LABS: Glucose,Whole Blood 119 mg/dL (75-99)
[2018-05-05] MEDS: MELATONIN 5 MG TABLET PO SCH (21:20)
[2018-05-06 06:10] LABS: Glucose,Whole Blood 78 mg/dL (75-99)
[2018-05-06] MEDS: INSULIN ASPART 100 UNIT/ML 1 ML 10 ML VIAL SQ SCH ×4 (06:10→21:28)
[2018-05-06 06:50] LABS: Calcium 9.1 mg/dL (8.4-10.2); Potassium 4.1 mmol/L (3.5-5.1)
[2018-05-06] MEDS: amLODIPine 5 MG TAB PO SCH ×2 (08:49→20:30)
[2018-05-06] MEDS: HEPARIN SODIUM,PORCINE 5,000 UNIT/ML 1 ML VIAL SQ SCH ×3 (08:49→23:02)
[2018-05-06] MEDS: FUROSEMIDE 10 MG/ML 4 ML VIAL IV SCH ×2 (08:49→20:29)
[2018-05-06] MEDS: ATORVASTATIN 40 MG TAB PO SCH (08:50)
[2018-05-06] MEDS: ATENOLOL 50 MG TAB PO SCH ×2 (08:50→20:30)
[2018-05-06] MEDS: ASPIRIN 81 MG PO SCH (08:50)
[2018-05-06] MEDS: CLOPIDOGREL 75 MG TAB PO SCH (08:51)
[2018-05-06] MEDS: CHOLECALCIFEROL 1,000 UNIT TAB PO SCH (08:51)
[2018-05-06] MEDS: FAMOTIDINE 20 MG TAB PO SCH ×2 (08:52→20:30)
[2018-05-06] MEDS: ISOSORBIDE MONONITRATE ER 30 MG TAB.ER.24H PO SCH (08:53)
[2018-05-06] MEDS: VITAMIN E (DL,TOCOPHERYL ACET) 400 UNIT CAP PO SCH (08:53)
[2018-05-06] MEDS: hydrALAZINE HCL 25 MG TAB PO SCH ×2 (08:53→20:30)
[2018-05-06] MEDS: NIACIN TR 500 MG CAPSULE.ER PO SCH (08:53)
[2018-05-06] MEDS: MULTIVITAMINS, THERA 1 EACH TAB PO SCH (08:54)
--- NOTE | 2018-05-06 10:24 | ECHOF ---
Referral Reason:CHF MEASUREMENTS -------- HEIGHT: 170.2 cm WEIGHT: 83.5 kg BP: 136/63 RVIDd: 3.5 cm (< 3.3) IVSd: 1.3 cm (0.6 - 1.1) LVIDd: 4.6 cm (3.9 - 5.3) LVPWd: 1.2 cm (0.6 - 1.1) IVSs: 1.6 cm LVIDs: 3.2 cm LVPWs: 2.0 cm LA Diam: 4.1 cm (2.7 - 3.8) LAESV Index (A-L): 30.35 ml/m Ao Diam: 3.4 cm (2.0 - 3.7) AV Cusp: 0.9 cm (1.5 - 2.6) MV EXCURSION: 12.039 mm (> 18.000) MV EF SLOPE: 42 mm/s (70 - 150) EPSS: 0.7 cm AV maxP.42 mmHg AV meanP.73 mmHg RAP: 15.00 mmHg RVSP: 55.29 mmHg FINDINGS -------- This was a technically adequate study. The left ventricular size is normal. There is mild concentric left ventricular hypertrophy. Overa ll left ventricular systolic function is low-normal with, an EF between 50 - 55 %. The right ventricle is mildly enlarged. LA is midly dilated 29-33ml/m2. The right atrium is normal in size. There is moderate aortic valve sclerosis. Trace amount of aortic regurgitation. There is mild ao rtic stenosis present. Peak/mean gradient across the Aortic Valve is 35.42mmHg / 17.73mmHg. The mitral valve leaflets are mildly thickened. Mild mitral annular calcification present. Modera te mitral regurgitation is present. Mild tricuspid regurgitation present. There is moderate to severe pulmonary hypertension. The rig ht ventricular systolic pressure, as measured by Doppler, is 55.29mmHg. Moderate pulmonic regurgitation. The aortic root size is normal. The inferior vena cava is dilated with no significant inspiratory collapse which is consistent estima kwabena right atrial pressure of >15 mmHg. There is no pericardial effusion. Small Pleural Effusion. CONCLUSIONS -------- 1. This was a technically adequate study. 2. The left ventricular size is normal. 3. There is mild concentric left ventricular hypertrophy. 4. Overall left ventricular systolic function is low-normal with, an EF between 50 - 55 %. 5. The right ventricle is mildly enlarged. 6. LA is midly dilated 29-33ml/m2. 7. The right atrium is normal in size. 8. There is moderate aortic valve sclerosis. 9. Trace amount of aortic regurgitation. 10. There is mild aortic stenosis present. 11. Peak/mean gradient across the Aortic Valve is 35.42mmHg / 17.73mmHg. 12. The mitral valve leaflets are mildly thickened. 13. Mild mitral annular calcification present. 14. Moderate mitral regurgitation is present. 15. Mild tricuspid regurgitation present. 16. There is moderate to severe pulmonary hypertension. 17. The right ventricular systolic pressure, as measured by Doppler, is 55.29mmHg. 18. Moderate pulmonic regurgitation. 19. The aortic root size is normal. 20. The inferior vena cava is dilated with no significant inspiratory collapse which is consistent es timated right atrial pressure of >15 mmHg. 21. There is no pericardial effusion. 22. Small Pleural Effusion. WINDOW [employer]OR INSTALLER: Tena Garrett RDCS
[2018-05-06 11:10] LABS: Glucose,Whole Blood 143 mg/dL (75-99)
--- NOTE | 2018-05-06 12:34 | P.CNPUL ---
History of Present Illness Consult date: 05/06/18 Reason for consult: dyspnea, hypoxemia, abnormal CXR/CT Chief complaint: Shortness of breath/heart failure History of present illness: Pulmonary consult dated 05/06/2018 87-year-old male who presents to the emergency department with complaints of shortness of breath. He has a history of COPD hyperlipidemia hypertension and myocardial infarction. He apparently told the ER physician in addition to shortness of breath he had chest pain. It apparently been going on for about 3 weeks prior to admission. In addition he complained of a sore throat. He apparently complained that he swallowed a large pill which is what caused the sore throat. In addition, he complained of shortness of breath. When he went into see the patient, his primary issue is that of shortness of breath which he blames on heart failure. He is improved. He told us that he was diagnosed as having heart failure. Since beginning Lasix, the patient has urinated quite a bit and his breathing has been much better. He would like to be discharged home he tells us. He denies any significant cough or phlegm production. There is no fever or chills. No nausea vomiting or diarrhea. Currently not having any chest pain or chest discomfort. He actually looks rather well. 2 family members are with him at the bedside. He apparently has a history of CAD, diabetes, GERD, hyperlipidemia, hypertension and myocardial infarction. He is also status post bypass grafting. He does admit to prior smoking history of about 25-30 years at less than one pack a day. Review of Systems A 12 point review of system is positive for shortness of breath. He apparently also told the emergency room physician that he had chest pain and pressure. That is no longer an issue. Past Medical History Past Medical History: Coronary Artery Disease (CAD), Diabetes Mellitus, GERD/ Reflux, Hyperlipidemia, Hypertension, Myocardial Infarction ([place]) Last Myocardial Infarction Date:: 1949 History of Any Multi-Drug Resistant Organisms: None Reported Past Surgical History: Coronary Bypass/CABG Additional Past Surgical History / Comment(s): STATES 3 OR 4 BYPASS Past Anesthesia/Blood Transfusion Reactions: No Reported Reaction Past Psychological History: No Psychological Hx Reported Smoking Status: Former smoker Past Alcohol Use History: None Reported Past Drug Use History: None Reported - Past Family History Brother(s) Family Medical History: Myocardial Infarction ([place]) Medications and Allergies Home Medications Medication Instructions Recorded Confirmed Type Aspirin 325 mg PO DAILY 04/15/15 05/04/18 History Atenolol [Tenormin] 50 mg PO BID 04/15/15 05/04/18 History Atorvastatin [Lipitor] 40 mg PO DAILY 04/15/15 05/04/18 History Benazepril HCl [Lotensin] 20 mg PO DAILY 04/15/15 05/04/18 History Cholecalciferol [Vitamin D3] 1,000 unit PO DAILY 04/15/15 05/04/18 History Clopidogrel [Plavix] 75 mg PO DAILY 04/15/15 05/04/18 History Isosorbide Mononitrate ER [Imdur] 30 mg PO DAILY 04/15/15 05/04/18 History Multivitamin [Men's Multi-Vitamin] 1 tab PO DAILY 04/15/15 05/04/18 History Niacin [Niaspan] 1,000 mg PO DAILY 04/15/15 05/04/18 History Omeprazole [PriLOSEC] 20 mg PO BID 04/15/15 05/04/18 History Vitamin E 1,000 unit PO DAILY 04/15/15 05/04/18 History amLODIPine [Norvasc] 5 mg PO BID 04/15/15 05/04/18 History Nitroglycerin Sl Tabs [Nitrostat] 0.4 mg SUBLINGUAL Q5M PRN 05/14/16 05/04/18 History hydrALAZINE HCL 25 mg PO BID 04/27/18 05/04/18 History Amoxicillin 500 mg PO Q8H #30 capsule 04/29/18 05/04/18 Rx glipiZIDE XL [Glucotrol Xl] 5 mg PO DAILY 04/29/18 05/04/18 History Allergies Allergy/AdvReac Type Severity Reaction Status Date / Time No Known Allergies Allergy Verified 05/04/18 12:32 Physical Exam Osteopathic Statement: *. No significant issues noted on an osteopathic structural exam other than those noted in the History and Physical/Consult. Vitals: Vital Signs Temp Pulse Resp BP Pulse Ox 05/06/18 09:45 19 95 05/06/18 08:00 96.9 F L 62 18 164/72 97 05/06/18 04:00 97 F L 60 18 136/63 96 05/06/18 00:00 97.6 F 62 18 148/67 93 L 07/22/18 20:00 97.6 F 61 20 129/69 93 L 05/05/18 16:24 95 05/05/18 15:48 97 F L 63 18 166/71 94 L Intake and Output 05/05/18 05/06/18 05/06/18 22:59 06:59 14:59 Intake Total 240 240 Output Total 400 1000 320 Balance -160 -1000 -80 Intake: Oral 240 240 Output: Urine 400 1000 320 Other: Voiding Method Urinal Urinal # Voids 1 1 Weight 83.5 kg No acute distress, oriented 3. Nasal O2 in place. HEENT examination is grossly unremarkable. Mucous membranes are moist. No oral lesions. Neck supple. Full range of motion. No adenopathy thyromegaly or neck vein distention. Cardiovascular examination reveals regular rhythm rate. S1-S2 normal. No S3 or S4. No discernible murmur noted. Lungs reveal mostly clear breath sounds. There is a few scattered bibasilar crackles. No wheezes or rhonchi. Breath sounds equal bilaterally. Abdomen soft bowel sounds are heard. No masses or tenderness. Extremities are intact. No cyanosis clubbing or edema. Skin is without rash or lesion. Neurologic examination is brief but nonfocal. Results - Laboratory Findings CBC and BMP: 05/04/18 12:15 05/06/18 06:09 ABG ABG pH 7.37 (7.35-7.45) 05/05/18 02:40 ABG pCO2 33 mmHg (35-45) L 05/05/18 02:40 ABG pO2 68 mmHg (83-108) L 05/05/18 02:40 ABG O2 Saturation 94.4 % (94-97) 05/05/18 02:40 PT/INR, D-dimer PT 11.4 sec (9.0-12.0) 05/04/18 12:15 INR 1.2 (<1.2) H 05/04/18 12:15 Abnormal lab findings: Abnormal Labs 05/04/18 05/04/18 05/04/18 12:15 12:15 12:15 RBC 3.77 L Hgb 11.8 L Hct 36.9 L INR 1.2 H ABG pCO2 ABG pO2 ABG HCO3 Chloride 114 H Carbon Dioxide 19 L BUN 26 H Creatinine 1.50 H Glucose 108 H POC Glucose (mg/dL) Troponin I 05/04/18 05/05/18 05/05/18 18:59 00:19 02:40 RBC Hgb Hct INR ABG pCO2 33 L ABG pO2 68 L ABG HCO3 19 L Chloride Carbon Dioxide BUN Creatinine Glucose POC Glucose (mg/dL) Troponin I 0.035 H* 0.045 H* 05/05/18 05/05/18 05/05/18 05:45 06:17 11:34 RBC Hgb Hct INR ABG pCO2 ABG pO2 ABG HCO3 Chloride 113 H Carbon Dioxide 20 L BUN 23 H Creatinine 1.54 H Glucose POC Glucose (mg/dL) 67 L 69 L Troponin I 05/05/18 05/06/18 05/06/18 20:50 06:09 11:08 RBC Hgb Hct INR ABG pCO2 ABG pO2 ABG HCO3 Chloride 111 H Carbon Dioxide BUN 26 H Creatinine 1.83 H Glucose POC Glucose (mg/dL) 119 H 143 H Troponin I - Diagnostic Findings Chest x-ray: report reviewed (Chest x-ray labs and medications are all reviewed. ), image reviewed Assessment and Plan Assessment: Assessment Acute hypoxemic respiratory failure secondary to congestive heart failure History of hypertension History of hyperlipidemia History of diabetes mellitus History of GERD History of CAD with previous myocardial infarction History of bypass grafting Plan: Plan dated 05/06/2018 The patient's labs medications and x-rays are all reviewed. Chest x-ray was consistent with congestive heart failure and the N-terminal proBNP was well over 10,000. Treatment with primarily consisted cardiology consultation and diuretics. Medications are reviewed. He may have some underlying chronic lung disease from previous tobacco use. Additional recommendations and suggestions are forthcoming. Time with Patient: Greater than 30
[2018-05-06 13:00] VITALS: RESP 18
--- NOTE | 2018-05-06 14:14 | P.PN ---
Subjective 87-year-old admitted with acute hypoxic respiratory failure secondary to CHF exacerbation patient the respiratory status as well as in the last night because of which obtained an ABG which showed hypoxic respiratory failure consulted pulmonary. Patient the significantly improved since last night to today morning continue with IV Lasix patient urinated quite a bit little edema improved patient is feeling better today 06/06/2018 Patient has significant improvement in his respiratory status patient is saturating at 95% on 5 L will cut down the oxygen. Mild worsening in creatinine. Constitutional: Denied any fatigue denied any fever. Cardio vascular: denied any chest pain, palpitations Gastrointestinal denied any nausea vomiting Pulmonary: Denied any shortness of breath cough Neurologic denied any new focal deficits Objective - Vital Signs Vital signs: Vital Signs Temp 97.2 F L 05/06/18 12:00 Pulse 57 L 05/06/18 12:00 Resp 18 05/06/18 12:00 BP 149/67 05/06/18 12:00 Pulse Ox 95 05/06/18 12:00 Intake & Output 05/05/18 05/06/18 05/06/18 18:59 06:59 18:59 Intake Total 480 480 Output Total 250 1300 320 Balance 230 -1300 160 Weight 83.5 kg 88.1 kg Intake: Oral 480 480 Output: Urine 250 1300 320 Other: Voiding Method Urinal Urinal # Voids 1 1 240 - Exam PHYSICAL EXAMINATION: GENERAL: The patient is alert and oriented x3, not in any acute distress. Well developed, well nourished. HEENT: Pupils are round and equally reacting to light. EOMI. No scleral icterus. No conjunctival pallor. Normocephalic, atraumatic. No pharyngeal erythema. No thyromegaly. CARDIOVASCULAR: S1 and S2 present. No murmurs, rubs, or gallops. PULMONARY: Chest is clear to auscultation, no wheezing or crackles. His no JVD there may be an S3. ABDOMEN: Soft, nontender, nondistended, normoactive bowel sounds. No palpable organomegaly. MUSCULOSKELETAL: No joint swelling or deformity. EXTREMITIES: No cyanosis, clubbing, or pedal edema improved NEUROLOGICAL: Gross neurological examination did not reveal any focal deficits. SKIN: No rashes. - Labs CBC & Chem 7: 05/04/18 12:15 05/06/18 06:09 Labs: Abnormal Lab Results - Last 24 Hours (Table) 05/05/18 05/06/18 05/06/18 Range/Units 20:50 06:09 11:08 Chloride 111 H (98-107) mmol/L BUN 26 H (9-20) mg/dL Creatinine 1.83 H (0.66-1.25) mg/dL POC Glucose (mg/dL) 119 H 143 H (75-99) mg/dL Assessment and Plan Plan: -Shortness of breath: Congestive heart failure chronic diastolic dysfunction with acute exacerbation patient had normal ejection fraction, patient appears to have right-sided heart failure and coprolalia as well. -Chest pain: Management as mentioned above -Volume overload with pedal edema although secondary to mostly right-sided heart failure along with some chronic diastolic dysfunction continue with IV Lasix. Monitor kidney function closely patient has moderate pulmonary hypertension mild aortic stenosis -Renal failure: Mostly chronic kidney disease stage III, his previous creatinine was around 1.2 now around 1.5 patient's creatinine remained stable at 1. 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
--- NOTE | 2018-05-06 15:05 | P.PN ---
Subjective Progress Note Date: 05/06/18 This is an 87-year-old gentleman who presented to the hospital with symptoms of progressive dyspnea as well as chest tightness. He was noted to be in congestive heart failure presentation. His coronary risk factors include diabetes, hypertension, hyperlipidemia. Continues to cough up productive sputum. He has known history of coronary artery disease with prior bypass surgery. Patient has been diuresing well on IV Lasix although his weight is not reflective of this. He sitting up in the chair today at the time of our examination. Sodium 142, potassium 4.1, BUN 26, creatinine 1.8. We will decrease his dose of Lasix to a twice a day dose and follow his renal function closely. Echocardiogram with Doppler study was performed which revealed an ejection fraction of 50-55%. Moderate aortic valve sclerosis moderate mitral regurg moderate to severe pulmonary hypertension. Objective - Vital Signs Vital signs: Vital Signs Temp 97.2 F L 05/06/18 12:00 Pulse 57 L 05/06/18 12:00 Resp 18 05/06/18 12:00 BP 149/67 05/06/18 12:00 Pulse Ox 95 05/06/18 12:00 Intake & Output 05/05/18 05/06/18 05/06/18 18:59 06:59 18:59 Intake Total 480 480 Output Total 250 1300 320 Balance 230 -1300 160 Weight 83.5 kg 88.1 kg Intake: Oral 480 480 Output: Urine 250 1300 320 Other: Voiding Method Urinal Urinal # Voids 1 1 240 - Exam PHYSICAL EXAMINATION: GENERAL: 87-year-old gentleman in no acute distress at the time of my examination HEENT: Head is atraumatic, normocephalic. Pupils equal, round. Sclera anicteric. Conjunctiva are clear. Mucous membranes of the mouth are moist. Neck is supple. There is no elevated jugular venous pressure. No carotid bruit is heard. HEART EXAMINATION: Heart S1 S2 1 systolic murmur is heard CHEST EXAMINATION: Lungs are clear to auscultation and precussion. No chest wall tenderness is noted on palpation or with deep breathing. ABDOMEN: Soft, nontender. Bowel sounds are heard. No organomegaly noted. EXTREMITIES: 2+ peripheral pulses with trace evidence of peripheral edema and no calf tenderness noted. NEUROLOGIC patient is awake, alert and oriented X3. . - Labs CBC & Chem 7: 05/04/18 12:15 05/06/18 06:09 Labs: Abnormal Lab Results - Last 24 Hours (Table) 05/05/18 05/06/18 05/06/18 Range/Units 20:50 06:09 11:08 Chloride 111 H (98-107) mmol/L BUN 26 H (9-20) mg/dL Creatinine 1.83 H (0.66-1.25) mg/dL POC Glucose (mg/dL) 119 H 143 H (75-99) mg/dL Assessment and Plan Plan: Assessment and plan #1 progressive dyspnea with element of congestive heart failure, diastolic acute on chronic. Echocardiogram with Doppler study was performed which revealed an ejection fraction of 50-55%, moderate aortic valve sclerosis, moderate mitral regurgitation, moderate to severe pulmonary hypertension. #2 known history of coronary artery disease #3 mild abnormality in troponin, most likely representing a type II events #4 possible pneumonia #5 hypertension #6 hyperlipidemia #7 chronic kidney disease Plan Creatinine today is up to 1.8, we will decrease dose of Lasix to twice a day and monitor renal function closely. DNP note has been reviewed, I agree with a documented findings and plan of care. Patient was seen and examined.
[2018-05-06 16:42] LABS: Glucose,Whole Blood 108 mg/dL (75-99)
[2018-05-06 20:53] LABS: Glucose,Whole Blood 174 mg/dL (75-99)
[2018-05-06] MEDS: MELATONIN 5 MG TABLET PO SCH (21:29)
[2018-05-07 06:11] LABS: Glucose,Whole Blood 117 mg/dL (75-99)
[2018-05-07] MEDS: INSULIN ASPART 100 UNIT/ML 1 ML 10 ML VIAL SQ SCH ×2 (06:27→11:32)
[2018-05-07 06:29] LABS: Calcium 9.2 mg/dL (8.4-10.2); Potassium 4.1 mmol/L (3.5-5.1)
[2018-05-07] MEDS: amLODIPine 5 MG TAB PO SCH (09:43)
[2018-05-07] MEDS: HEPARIN SODIUM,PORCINE 5,000 UNIT/ML 1 ML VIAL SQ SCH (09:43)
[2018-05-07] MEDS: NIACIN TR 500 MG CAPSULE.ER PO SCH (09:44)
[2018-05-07] MEDS: ISOSORBIDE MONONITRATE ER 30 MG TAB.ER.24H PO SCH (09:44)
[2018-05-07] MEDS: VITAMIN E (DL,TOCOPHERYL ACET) 400 UNIT CAP PO SCH (09:44)
[2018-05-07] MEDS: MULTIVITAMINS, THERA 1 EACH TAB PO SCH (09:44)
[2018-05-07] MEDS: CHOLECALCIFEROL 1,000 UNIT TAB PO SCH (09:45)
[2018-05-07] MEDS: ATENOLOL 50 MG TAB PO SCH (09:45)
[2018-05-07] MEDS: FAMOTIDINE 20 MG TAB PO SCH (09:45)
[2018-05-07] MEDS: FUROSEMIDE 10 MG/ML 4 ML VIAL IV SCH (09:45)
[2018-05-07] MEDS: hydrALAZINE HCL 25 MG TAB PO SCH (09:45)
[2018-05-07] MEDS: CLOPIDOGREL 75 MG TAB PO SCH (09:45)
[2018-05-07] MEDS: ATORVASTATIN 40 MG TAB PO SCH (09:45)
[2018-05-07 10:32] VITALS: TEMP 97.4
[2018-05-07 11:30] LABS: Glucose,Whole Blood 120 mg/dL (75-99)
[2018-05-07] MEDS: ASPIRIN 81 MG PO SCH (11:32)
--- NOTE | 2018-05-07 11:57 | P.PN ---
Subjective Progress Note Date: 05/07/18 Principal diagnosis: Shortness of breath Progress note dated 05/07/2018 This is a very pleasant 87-year-old male that we saw yesterday in consultation for acute hypoxemic respiratory failure secondary to congestive heart failure. In addition, he has a history of hypertension hyperlipidemia diabetes GERD coronary artery disease previous bypass grafting and myocardial infarction. His N-terminal proBNP on admission was well over 10,000. He's doing much better today. He's feeling much better. He would like to be discharged home. He is hoping to be discharged home. He is not requiring any supplemental oxygen. His been weaned off the oxygen. He's not having any chest pain. Minimal shortness of breath. He is a no code patient. Objective - Vital Signs Vital signs: Vital Signs Temp 97.4 F L 05/07/18 08:00 Pulse 73 05/07/18 08:00 Resp 18 05/07/18 08:00 BP 189/80 05/07/18 08:00 Pulse Ox 94 L 05/07/18 09:18 Intake & Output 05/06/18 05/07/18 05/07/18 18:59 06:59 18:59 Intake Total 720 240 Output Total 320 1800 125 Balance 400 -1800 115 Weight 88.1 kg 78.7 kg Intake: Oral 720 240 Output: Urine 320 1800 125 Other: Voiding Method Urinal # Voids 240 1 1 - Exam No acute distress, oriented 3. Not requiring any supplemental oxygen. HEENT examination is grossly unremarkable. Mucous membranes are moist. No oral lesions. Neck supple. Full range of motion. No adenopathy thyromegaly or neck vein distention. Cardiovascular examination reveals regular rhythm rate. S1-S2 normal. No S3 or S4. No discernible murmur noted. Lungs reveal mostly clear breath sounds. There are some mild bibasilar crackles. No wheezes or rhonchi. Breath sounds equal bilaterally. Abdomen soft bowel sounds are heard. No masses or tenderness. Extremities are intact. Minimal lower extremity edema. No cyanosis or clubbing. Skin is without rash or lesion. Neurologic examination is brief but nonfocal. - Labs CBC & Chem 7: 05/04/18 12:15 05/07/18 06:04 Labs: Abnormal Lab Results - Last 24 Hours (Table) 05/06/18 05/06/18 05/07/18 Range/Units 16:32 20:51 06:04 BUN 28 H (9-20) mg/dL Creatinine 1.81 H (0.66-1.25) mg/dL Glucose 116 H (74-99) mg/dL POC Glucose (mg/dL) 108 H 174 H (75-99) mg/dL 05/07/18 05/07/18 Range/Units 06:08 11:25 BUN (9-20) mg/dL Creatinine (0.66-1.25) mg/dL Glucose (74-99) mg/dL POC Glucose (mg/dL) 117 H 120 H (75-99) mg/dL Assessment and Plan Assessment: Assessment Acute hypoxemic respiratory failure secondary to congestive heart failure, improved. History of hypertension History of hyperlipidemia History of diabetes mellitus History of GERD History of CAD with previous myocardial infarction History of bypass grafting Plan: Plan dated 05/06/2018 The patient's labs medications and x-rays are all reviewed. Chest x-ray was consistent with congestive heart failure and the N-terminal proBNP was well over 10,000. Treatment with primarily consisted cardiology consultation and diuretics. Medications are reviewed. He may have some underlying chronic lung disease from previous tobacco use. Additional recommendations and suggestions are forthcoming. Plan dated 05/07/2018 The patient seems to be doing much better today. He has been weaned off supplemental oxygen. The patient states he wants to be discharged home. That will certainly be up to his primary care service as well as cardiology. From the pulmonary standpoint he is doing much better. The patient feels much better. Seems not to be having any difficulty. He is a no code. Time with Patient: Less than 30
--- NOTE | 2018-05-07 12:25 | P.DS ---
Providers Date of admission: 05/07/18 08:14 Attending physician: David Grajeda Consults: 05/04/18 13:42 Consult Physician Routine Consulting Provider: Sima Beckham Consult Reason/Comments: new onset chf Do you want consulting provider notified?: Yes 05/05/18 01:17 Consult Physician Routine Consulting Provider: Gavin Dolan Reason/Comments: shortness of breath Do you want consulting provider notified?: Yes, Notify in am Primary care physician: [facility] Course: 87-year-old admitted with acute hypoxic respiratory failure secondary to CHF exacerbation patient the respiratory status as well as in the last night because of which obtained an ABG which showed hypoxic respiratory failure consulted pulmonary. Patient the significantly improved since last night to today morning continue with IV Lasix patient urinated quite a bit little edema improved patient is feeling better today 05/06/2018 Patient has significant improvement in his respiratory status patient is saturating at 95% on 5 L will cut down the oxygen. Mild worsening in creatinine. 05/07/2018 Patient is euvolemic is not requiring any oxygen. Patient will be resumed on lisinopril as her kidney function is chronic kidney disease. Patient blood pressures elevated as patient is not receiving his GILBERT inhibitor. Patient is high risk for readmission because of his age and polypharmacy along with heart failure. PHYSICAL EXAMINATION: GENERAL: The patient is alert and oriented x3, not in any acute distress. Well developed, well nourished. HEENT: Pupils are round and equally reacting to light. EOMI. No scleral icterus. No conjunctival pallor. Normocephalic, atraumatic. No pharyngeal erythema. No thyromegaly. CARDIOVASCULAR: S1 and S2 present. No murmurs, rubs, or gallops. PULMONARY: Chest is clear to auscultation, no wheezing or crackles. His no JVD there may be an S3. ABDOMEN: Soft, nontender, nondistended, normoactive bowel sounds. No palpable organomegaly. MUSCULOSKELETAL: No joint swelling or deformity. EXTREMITIES: No cyanosis, clubbing, or pedal edema improved NEUROLOGICAL: Gross neurological examination did not reveal any focal deficits. SKIN: No rashes. Assessment and Plan Plan: -Shortness of breath: Congestive heart failure chronic diastolic dysfunction with acute exacerbation patient had normal ejection fraction, patient appears to have right-sided heart failure and diastolic dysfunction -Chest pain: Management as mentioned above -Volume overload with pedal edema although secondary to mostly right-sided heart failure along with some chronic diastolic dysfunction patient is euvolemic 9 will be discharged on 40 oral twice a day of Lasix -Renal failure: Mostly chronic kidney disease stage III, his previous creatinine was around 1.2 little bit elevated above the baseline to 1.5 -Coronary artery disease -Non-anion gap gap metabolic acidosis secondary to hyperchloremia -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 Patient Condition at Discharge: Fair Plan - Discharge Summary New Discharge Prescriptions: New Aspirin 81 mg PO DAILY #30 chew hydrALAZINE HCL [Apresoline] 50 mg PO TID #90 tab Furosemide [Lasix] 40 mg PO BID #60 tablet Continue amLODIPine [Norvasc] 5 mg PO BID Vitamin E 1,000 unit PO DAILY Omeprazole [PriLOSEC] 20 mg PO BID Niacin [Niaspan] 1,000 mg PO DAILY Multivitamin [Men's Multi-Vitamin] 1 tab PO DAILY Isosorbide Mononitrate ER [Imdur] 30 mg PO DAILY Clopidogrel [Plavix] 75 mg PO DAILY Cholecalciferol [Vitamin D3] 1,000 unit PO DAILY Benazepril HCl [Lotensin] 20 mg PO DAILY Atorvastatin [Lipitor] 40 mg PO DAILY Atenolol [Tenormin] 50 mg PO BID Nitroglycerin Sl Tabs [Nitrostat] 0.4 mg SUBLINGUAL Q5M PRN PRN Reason: Chest Pain glipiZIDE XL [Glucotrol XL] 5 mg PO DAILY Discontinued Aspirin 325 mg PO DAILY hydrALAZINE HCL 25 mg PO BID Amoxicillin 500 mg PO Q8H #30 capsule Discharge Medication List Atenolol [Tenormin] 50 mg PO BID 04/15/15 [History] Atorvastatin [Lipitor] 40 mg PO DAILY 04/15/15 [History] Benazepril HCl [Lotensin] 20 mg PO DAILY 04/15/15 [History] Cholecalciferol [Vitamin D3] 1,000 unit PO DAILY 04/15/15 [History] Clopidogrel [Plavix] 75 mg PO DAILY 04/15/15 [History] Isosorbide Mononitrate ER [Imdur] 30 mg PO DAILY 07/02/15 [History] Multivitamin [Men's Multi-Vitamin] 1 tab PO DAILY 04/15/15 [History] Niacin [Niaspan] 1,000 mg PO DAILY 04/15/15 [History] Omeprazole [PriLOSEC] 20 mg PO BID 04/15/15 [History] Vitamin E 1,000 unit PO DAILY 04/15/15 [History] amLODIPine [Norvasc] 5 mg PO BID 04/15/15 [History] Nitroglycerin Sl Tabs [Nitrostat] 0.4 mg SUBLINGUAL Q5M PRN 05/14/16 [History] glipiZIDE XL [Glucotrol XL] 5 mg PO DAILY 04/29/18 [History] Aspirin 81 mg PO DAILY #30 chew 05/07/18 [Rx] Furosemide [Lasix] 40 mg PO BID #60 tablet 05/07/18 [Rx] hydrALAZINE HCL [Apresoline] 50 mg PO TID #90 tab 05/07/18 [Rx] Follow up Appointment(s)/Referral(s): Sima Beckham MD [STAFF PHYSICIAN] - 05/31/18 3:30 pm (Office will call after speaking with Dr. Beckham if he would like to see you sooner.) Charli Ramsay DO [Primary Care Provider] - 3 Days (Office will call with follow up appointment.) Taj Moreno DO [Doctor of Osteopathic Medicine] - As Needed Ambulatory/Diagnostic Orders: Basic Metabolic Panel [LAB.AMB] Location: None Selected Patient Instructions/Handouts: Heart Failure (DC), Low Sodium Diet (DC) Discharge Disposition: HOME WITH HOME HEALTH SERVICES
[2018-05-07 12:37] VITALS: BP 144/63; PULSE 66
--- NOTE | 2018-05-07 14:07 | P.PN ---
Subjective Progress Note Date: 05/07/18 This is an 87-year-old gentleman who presented to the hospital with symptoms of progressive dyspnea as well as chest tightness. He was noted to be in congestive heart failure presentation. His coronary risk factors include diabetes, hypertension, hyperlipidemia. Continues to cough up productive sputum. He has known history of coronary artery disease with prior bypass surgery. Patient has been diuresing well on IV Lasix although his weight is not reflective of this. He sitting up in the chair today at the time of our examination. Sodium 142, potassium 4.1, BUN 26, creatinine 1.8. We will decrease his dose of Lasix to a twice a day dose and follow his renal function closely. Echocardiogram with Doppler study was performed which revealed an ejection fraction of 50-55%. Moderate aortic valve sclerosis moderate mitral regurg moderate to severe pulmonary hypertension. 05/07/2018 Patient seen and examined this morning, sitting up in the chair at bedside. Eager to be discharged home today. Creatinine remaining stable at 1.8, IV Lasix has been discontinued and patient has been initiated on oral diuretics. Objective - Vital Signs Vital signs: Vital Signs Temp 97.4 F L 05/07/18 08:00 Pulse 66 05/07/18 12:00 Resp 18 05/07/18 12:00 BP 144/63 05/07/18 12:00 Pulse Ox 95 05/07/18 12:00 Intake & Output 05/06/18 05/07/18 05/07/18 18:59 06:59 18:59 Intake Total 720 480 Output Total 320 1800 125 Balance 400 -1800 355 Weight 88.1 kg 78.7 kg Intake: Oral 720 480 Output: Urine 320 1800 125 Other: Voiding Method Urinal # Voids 240 1 1 - Exam PHYSICAL EXAMINATION: GENERAL: 87-year-old gentleman in no acute distress at the time of my examination HEENT: Head is atraumatic, normocephalic. Pupils equal, round. Sclera anicteric. Conjunctiva are clear. Mucous membranes of the mouth are moist. Neck is supple. There is no elevated jugular venous pressure. No carotid bruit is heard. HEART EXAMINATION: Heart S1 S2 1 systolic murmur is heard CHEST EXAMINATION: Lungs are clear to auscultation and precussion. No chest wall tenderness is noted on palpation or with deep breathing. ABDOMEN: Soft, nontender. Bowel sounds are heard. No organomegaly noted. EXTREMITIES: 2+ peripheral pulses with trace evidence of peripheral edema and no calf tenderness noted. NEUROLOGIC patient is awake, alert and oriented X3. . - Labs CBC & Chem 7: 05/04/18 12:15 05/07/18 06:04 Labs: Abnormal Lab Results - Last 24 Hours (Table) 05/06/18 05/06/18 05/07/18 Range/Units 16:32 20:51 06:04 BUN 28 H (9-20) mg/dL Creatinine 1.81 H (0.66-1.25) mg/dL Glucose 116 H (74-99) mg/dL POC Glucose (mg/dL) 108 H 174 H (75-99) mg/dL 05/07/18 05/07/18 Range/Units 06:08 11:25 BUN (9-20) mg/dL Creatinine (0.66-1.25) mg/dL Glucose (74-99) mg/dL POC Glucose (mg/dL) 117 H 120 H (75-99) mg/dL Assessment and Plan Plan: Assessment and plan #1 progressive dyspnea with element of congestive heart failure, diastolic acute on chronic. Echocardiogram with Doppler study was performed which revealed an ejection fraction of 50-55%, moderate aortic valve sclerosis, moderate mitral regurgitation, moderate to severe pulmonary hypertension. #2 known history of coronary artery disease #3 mild abnormality in troponin, most likely representing a type II events #4 possible pneumonia #5 hypertension #6 hyperlipidemia #7 chronic kidney disease Plan From cardiology's perspective, patient may be able to be discharged once cleared by primary. The patient has a follow-up appointment in the office already scheduled for the which she has been advised to keep. DNP note has been reviewed, I agree with a documented findings and plan of care. Patient was seen and examined.
--- NOTE | 2018-05-10 05:58 | CDI ---
Last Revision, September 2017 Documentation Clarification Form Date: 05/10/2018 12:00:00 AM From: Joan Valdez Phone: If you have a question about this query, please contact Darleen Matute Arabic Professor at [phone] between 8am and 5pm. Admit Date: 05/07/2018 8:14:00 AM Patient Name: Sadiq Goodman Visit Number: [id number] Discharge Date: 05/07/2018 ATTENTION: The Clinical Documentation Specialists (CDI) and [facility] Coding Staff appreciate your assistance in clarifying documentation. Please respond to the clarification below the line at the bottom and electronically sign. The CDI & [facility] Coding staff will review the response and follow-up if needed. Please note: Queries are made part of the Legal Health Record. If you have any questions, please contact the author of this message via ITS. Dr. David Grajeda Cardiac consult and cardiac progress notes documents "Mild elevation in troponins, most likely presenting type 2 event." Patient History/Risk Factors: CAD, CABG, prior NM, CHF, HTN Troponin: elevated EKG Results: T wave abnormality Consult: Cardiac In order to capture the severity of condition and necessary documentation please clarify if patient had a type 2 NM or was this ruled out. Type 2 NM Unable to determine Other Condition, please specify Type 2 NM _ MTDD
== END 2018-05-07 13:48 | disposition home or self-care (01) | DRG 280 ==
LOC: EC 11:50 → 6SEL 13:41 → INTOOBSV 13:41 → 6SEL 18:11 → OBSVTOIN 05-07 08:14
PROVIDERS: ADMIT Internal Medicine; ATTEND Internal Medicine
DX: I13.0 Hypertensive heart and chronic kidney disease with heart failure and stage 1 through stage 4 chronic kidney disease, or unspecified chronic kidney disease (principal); I50.33 Acute on chronic diastolic (congestive) heart failure; I21.A1 Myocardial infarction type 2; J96.01 Acute respiratory failure with hypoxia; J18.9 Pneumonia, unspecified organism; E87.2 Acidosis; K21.9 Gastro-esophageal reflux disease without esophagitis; K22.2 Esophageal obstruction; J44.9 Chronic obstructive pulmonary disease, unspecified; E11.21 Type 2 diabetes mellitus with diabetic nephropathy; E11.22 Type 2 diabetes mellitus with diabetic chronic kidney disease; E78.5 Hyperlipidemia, unspecified; E87.8 Other disorders of electrolyte and fluid balance, not elsewhere classified; I08.0 Rheumatic disorders of both mitral and aortic valves; I25.10 Atherosclerotic heart disease of native coronary artery without angina pectoris; I25.2 Old myocardial infarction; I27.20 Pulmonary hypertension, unspecified; N18.3 Chronic kidney disease, stage 3 (moderate); Z79.02 Long term (current) use of antithrombotics/antiplatelets; Z79.82 Long term (current) use of aspirin; Z79.84 Long term (current) use of oral hypoglycemic drugs; Z79.899 Other long term (current) drug therapy; Z82.49 Family history of ischemic heart disease and other diseases of the circulatory system; Z87.891 Personal history of nicotine dependence; Z95.1 Presence of aortocoronary bypass graft
CPT/HCPCS: 36415; 36600; 71046; 80048; 80053; 82550; 82553; 82805; 83036; 83735; 83880; 84484; 85025; 85610; 85730; 93005; 93306; 94760; 96372; 96374; 99285

== ENCOUNTER 2018-10-10 10:22 | Emergency (ER) | payer MEDICARE ==
[2018-10-10 11:25] VITALS: RESP 18
[2018-10-10] MEDS ORDERED: SODIUM CHLORIDE 0.9% 500 ML 500 ML IV STA (12:23)
--- NOTE | 2018-10-10 13:05 | ED ---
Dizziness HPI - General Chief Complaint: Dizziness Stated Complaint: headaches/lightheaded Time Seen by Provider: 10/10/18 11:54 Source: patient, RN notes reviewed, old records reviewed Mode of arrival: ambulatory - History of Present Illness Initial Comments: 87-year-old male presents emergency room today with episodes of head pressure. He reports that 3 episodes of head pressure. He states he's had 2 earlier in the month and one today. He states he is concerned why this is happening. Patient has had no fevers or chills. He denies any chest pain for breath. He does have history of CHF. He reports no difficulty in breathing or leg swelling. He states that this time he has no headache. - Related Data Home Medications Medication Instructions Recorded Confirmed Atenolol [Tenormin] 50 mg PO BID 04/15/15 10/10/18 Atorvastatin [Lipitor] 40 mg PO DAILY 04/15/15 10/10/18 Benazepril HCl [Lotensin] 20 mg PO DAILY 04/15/15 10/10/18 Cholecalciferol [Vitamin D3] 1,000 unit PO DAILY 04/15/15 10/10/18 Clopidogrel [Plavix] 75 mg PO DAILY 04/15/15 10/10/18 Isosorbide Mononitrate ER [Imdur] 30 mg PO DAILY 04/15/15 10/10/18 Multivitamin [Men's Multi-Vitamin] 1 tab PO DAILY 04/15/15 10/10/18 Niacin [Niaspan] 1,000 mg PO DAILY 04/15/15 10/10/18 Omeprazole [PriLOSEC] 20 mg PO BID 04/15/15 10/10/18 Vitamin E 1,000 unit PO DAILY 04/15/15 10/10/18 amLODIPine [Norvasc] 5 mg PO BID 04/15/15 10/10/18 Nitroglycerin Sl Tabs [Nitrostat] 0.4 mg SUBLINGUAL Q5M PRN 05/14/16 10/10/18 glipiZIDE XL [Glucotrol XL] 5 mg PO DAILY 04/29/18 10/10/18 ALPRAZolam [Xanax] 0.25 mg PO BID PRN 10/10/18 10/10/18 Allopurinol [Zyloprim] 100 mg PO DAILY 10/10/18 10/10/18 hydrALAZINE HCL [Apresoline] 25 mg PO BID 10/10/18 10/10/18 Previous Rx's Medication Instructions Recorded Aspirin 81 mg PO DAILY #30 chew 05/07/18 Amoxic-Pot Clav 875-125Mg 1 tab PO Q12HR #14 tablet 10/10/18 [Augmentin 875-125] Allergies Allergy/AdvReac Type Severity Reaction Status Date / Time No Known Allergies Allergy Verified 10/10/18 12:15 Review of Systems ROS Statement: Those systems with pertinent positive or pertinent negative responses have been documented in the HPI. ROS Other: All systems not noted in ROS Statement are negative. Past Medical History Past Medical History: Coronary Artery Disease (CAD), Diabetes Mellitus, GERD/ Reflux, Hyperlipidemia, Hypertension, Myocardial Infarction ([place]) Last Myocardial Infarction Date:: 1949 History of Any Multi-Drug Resistant Organisms: None Reported Past Surgical History: Coronary Bypass/CABG Additional Past Surgical History / Comment(s): STATES 3 OR 4 BYPASS Past Anesthesia/Blood Transfusion Reactions: No Reported Reaction Past Psychological History: No Psychological Hx Reported Smoking Status: Former smoker Past Alcohol Use History: None Reported Past Drug Use History: None Reported - Past Family History Brother(s) Family Medical History: Myocardial Infarction ([place]) General Exam - General Exam Comments Initial Comments: Sadiq is a pleasant and joking 87-year-old male. No acute distress. General appearance: alert, in no apparent distress Head exam: Present: atraumatic, normocephalic, normal inspection Eye exam: Present: normal appearance ENT exam: Present: normal exam, mucous membranes moist Neck exam: Present: normal inspection. Absent: tenderness, meningismus, lymphadenopathy Respiratory exam: Present: normal lung sounds bilaterally. Absent: respiratory distress, wheezes, rales, rhonchi, stridor Cardiovascular Exam: Present: regular rate, normal rhythm, normal heart sounds. Absent: systolic murmur, diastolic murmur, rubs, gallop, clicks GI/Abdominal exam: Present: soft, normal bowel sounds. Absent: distended, tenderness, guarding, rebound, rigid Extremities exam: Present: normal inspection, full ROM, normal capillary refill. Absent: tenderness, pedal edema, joint swelling, calf tenderness Back exam: Present: normal inspection Neurological exam: Present: alert, oriented X3, CN II-XII intact Expanded Patient oriented to: Present: person, place, time Speech: Present: fluid speech Cranial nerves: EOM's Intact: Normal Cerebellar function: Finger to Nose: Normal Upper motor neuron: Pronator Drift: Normal Sensory exam: Upper Extremity Light Touch: Normal, Lower Extremity Light Touch: Normal Motor strength exam: RUE: 5, LUE: 5, RLE: 5, LLE: 5 Eye Response: (4) open spontaneously Motor Response: (6) obeys commands Verbal Response: (5) oriented Michela Total: 15 Psychiatric exam: Present: normal affect, normal mood Course Vital Signs 10/10/18 10/10/18 10/10/18 11:20 12:53 14:55 Temperature 97.5 F L 97.8 F Pulse Rate 71 56 L 67 Respiratory 18 18 18 Rate Blood Pressure 172/81 138/77 162/91 O2 Sat by Pulse 95 95 94 L Oximetry Medical Decision Making - Medical Decision Making This Patient is an 87-year-old male who presents today with chief complaint episode of a headache. Patient reports that he had a episode of head pressure starting this morning. He had no other complaints. He states he has no headache at this time. Patient has no focal or lateralizing neurological deficits. He said when he had this he had an episode of dizziness. He does have significant heart history including CABG. Patient states he has no chest pain or any other complaints. He states he feels well at this time. Just curious as to why he had this head pressure. He completed a CT which shows no acute process. There is diffuse age-related changes. Patient does show some signs of acute sinusitis. We'll treat the Patient for sinusitis. He then later admits to having some congestion. Patient labwork was reviewed. White count was normal, chem she panels were normal besides his chronic kidney disease with a low GFR of 32. This is been stable. He did have a mildly elevated troponin. At this time I discussed with the Patient that it could admit the Patient for repeat evaluation for his heart enzyme. However Patient was adamant that he has no chest pain and is concerned for his heart. He states that if he would have any further chest pain or symptoms he would return. I also discussed this could be just a reflection to his chronic kidney disease. EKG was reviewed with Dr. Barry. He had some slight changes from his last EKG in April. I informed the Patient if he does not stay Patient had prompt follow-up with his primary care physician and he was advised on strict return parameters. 3 days shared decision making Patient stated that he will is adamant he would like to go home. - Lab Data Result diagrams: 10/10/18 12:45 10/10/18 12:45 Lab Results 10/10/18 10/10/18 10/10/18 Range/Units 12:45 12:45 12:45 WBC 6.4 (3.8-10.6) k/uL RBC 3.52 L (4.30-5.90) m/uL Hgb 11.2 L (13.0-17.5) gm/dL Hct 35.4 L (39.0-53.0) % MCV 100.8 H (80.0-100.0) fL MCH 31.9 (25.0-35.0) pg MCHC 31.6 (31.0-37.0) g/dL RDW 15.6 H (11.5-15.5) % Plt Count 162 (150-450) k/uL Neutrophils % 64 % Lymphocytes % 17 % Monocytes % 8 % Eosinophils % 8 % Basophils % 0 % Neutrophils # 4.1 (1.3-7.7) k/uL Lymphocytes # 1.1 (1.0-4.8) k/uL Monocytes # 0.5 (0-1.0) k/uL Eosinophils # 0.5 (0-0.7) k/uL Basophils # 0.0 (0-0.2) k/uL Macrocytosis Slight Sodium 141 (137-145) mmol/L Potassium 4.4 (3.5-5.1) mmol/L Chloride 112 H (98-107) mmol/L Carbon Dioxide 20 L (22-30) mmol/L Anion Gap 9 mmol/L BUN 27 H (9-20) mg/dL Creatinine 1.84 H (0.66-1.25) mg/dL Est GFR (CKD-EPI)AfAm 37 (>60 ml/min/1.73 sqM) Est GFR (CKD-EPI)NonAf 32 (>60 ml/min/1.73 sqM) Glucose 119 H (74-99) mg/dL Calcium 9.7 (8.4-10.2) mg/dL Total Bilirubin 0.6 (0.2-1.3) mg/dL AST 36 (17-59) U/L ALT 36 (21-72) U/L Alkaline Phosphatase 102 (38-126) U/L Troponin I 0.040 H* (0.000-0.034) ng/mL Total Protein 6.9 (6.3-8.2) g/dL Albumin 3.7 (3.5-5.0) g/dL 10/10/18 15:24 EKG performed at 13 which shows atrial fibrillation with slow ventricular response. Left axis deviation. Left bundle branch block. Abnormal EKG. Ventricular rate of 57 bpm. She caodaism 122 ms. QT QTc is 416/455 ms. - Radiology Data Radiology results: report reviewed Chest x-ray stated for any acute cardiopulmonary disease. No acute intracranial abnormality seen. White matter changes likely reflect moderate to severe burden of chronic small vessel ischemic disease. Chronic ethmoid sinus disease, air fluid level within the left frontal sinus can be seen with acute sinusitis. Disposition Clinical Impression: Sinusitis, Chronic kidney disease, Headache Disposition: HOME SELF-CARE Condition: Good Instructions: Dizziness (ED) Additional Instructions: Patient has a close follow up with primary care physician and cardiology. Patient should take medications as prescribed. Return to emergency department if any alarming signs or symptoms occur. Prescriptions: Amoxic-Pot Clav 875-125Mg [Augmentin 875-125] 1 tab PO Q12HR #14 tablet Is patient prescribed a controlled substance at d/c from ED?: No Referrals: Charli Ramsay DO [Primary Care Provider] - 1-2 days Time of Disposition: 14:41
[2018-10-10 13:16] LABS: Basophils % (A) 0 %; Eosinophils # (A) 0.5 k/uL (0-0.7); Eosinophils % (A) 8 %; HCT 35.4 % (39.0-53.0); HGB 11.2 gm/dL (13.0-17.5); Lymphocytes # (A) 1.1 k/uL (1.0-4.8); Lymphocytes % (A) 17 %; MCH 31.9 pg (25.0-35.0); MCHC 31.6 g/dL (31.0-37.0); MCV 100.8 fL (80.0-100.0); Macrocytosis Slight; Mean Platelet Volume 8.4; Monocytes # (A) 0.5 k/uL (0-1.0); Monocytes % (A) 8 %; Neutrophils # (A) 4.1 k/uL (1.3-7.7); Neutrophils % (A) 64 %; Platelet Count 162 k/uL (150-450); RBC 3.52 m/uL (4.30-5.90); RDW 15.6 % (11.5-15.5); WBC 6.4 k/uL (3.8-10.6)
--- NOTE | 2018-10-10 13:25 | XR ---
EXAMINATION TYPE: XR chest 2V DATE OF EXAM: 10/10/2018 COMPARISON: 05/04/2018 HISTORY: Shortness of breath TECHNIQUE: Frontal and lateral views of the chest are obtained. FINDINGS: Scattered senescent parenchymal changes noted. Hyperinflation compatible with COPD. No evidence for infiltrate. No evidence for atelectasis. Chronic infiltrate suggested. Heart size is stable. Mediastinal structures are stable and grossly unremarkable. No evidence for hilar prominence. Degenerative changes dorsal spine. IMPRESSION: 1. No evidence for acute pulmonary disease.
[2018-10-10 13:32] LABS: Albumin 3.7 g/dL (3.5-5.0); Calcium 9.7 mg/dL (8.4-10.2); Potassium 4.4 mmol/L (3.5-5.1); Total Bilirubin 0.6 mg/dL (0.2-1.3); Total Protein 6.9 g/dL (6.3-8.2)
--- NOTE | 2018-10-10 13:44 | CT ---
EXAMINATION TYPE: CT brain wo con DATE OF EXAM: 10/10/2018 COMPARISON: None HISTORY: 87-year-old male Head pressure and pain TECHNIQUE: Examination was done in axial plane without intravenous contrast. Coronal and sagittal r econstructions performed. CT DLP: 1099.4 mGycm Automated exposure control for dose reduction was used. FINDINGS: There is no evidence of acute intracranial hemorrhage, acute ischemic changes, mass, mass-effect, or extra-axial fluid collection. There is no effacement of cerebral sulci or basal subarachnoid cister ns. Mild ventricular prominence likely secondary to central cerebral atrophy. There is no midline renita ft. Garcia-white matter distinction is preserved. Moderate to severe confluent white matter hypodensities in both cerebral hemispheres. Prominent ather osclerotic calcifications in the carotid siphons. Dense cerumen within the right greater than left external auditory canals. Small amount of trapped fl uid in the inferior right mastoid air cells. Moderate mucosal thickening ethmoid air cells and small air-fluid level left frontal sinus. IMPRESSION: 1. No acute intracranial abnormality seen. White matter changes likely reflect moderate to severe bur den of chronic small vessel ischemic disease. 2. Chronic ethmoid sinus disease. Air-fluid level in the left frontal sinus can be seen with acute si nusitis. 3. In addition, there is small amount of trapped fluid in the inferior right mastoid air cells. Corre late for any mastoid pain to exclude mastoiditis.
[2018-10-10 15:02] VITALS: BP 162/91; PULSE 67; TEMP 97.8
== END 2018-10-10 14:55 | disposition home or self-care (01) ==
LOC: EC 10:22
DX: J32.9 Chronic sinusitis, unspecified (principal); E11.22 Type 2 diabetes mellitus with diabetic chronic kidney disease; I13.10 Hypertensive heart and chronic kidney disease without heart failure, with stage 1 through stage 4 chronic kidney disease, or unspecified chronic kidney disease; N18.9 Chronic kidney disease, unspecified; I25.10 Atherosclerotic heart disease of native coronary artery without angina pectoris; I25.2 Old myocardial infarction; K21.9 Gastro-esophageal reflux disease without esophagitis; E78.5 Hyperlipidemia, unspecified; Z87.891 Personal history of nicotine dependence; Z79.02 Long term (current) use of antithrombotics/antiplatelets; Z79.899 Other long term (current) drug therapy; Z98.61 Coronary angioplasty status
CPT/HCPCS: 36415; 70450; 71046; 80053; 84484; 85025; 93005; 99285

== ENCOUNTER 2018-10-11 18:55 | Inpatient (IN) | payer MEDICARE ==
[2018-10-11] MEDS ORDERED: ASPIRIN 81 MG PO STA (20:29)
[2018-10-11] MEDS ORDERED: NITROGLYCERIN OINT 1 INCH/GM PACKET TOPICAL STA (20:29)
[2018-10-11] MEDS ORDERED: IPRATROPIUM-ALBUTEROL 3 ML NEB INHALATION STA (20:29)
--- NOTE | 2018-10-11 20:32 | ED ---
General Adult HPI - General Chief complaint: Shortness of Breath Stated complaint: Dyspnea Time Seen by Provider: 10/11/18 19:49 Source: patient, family, RN notes reviewed Mode of arrival: ambulatory Limitations: no limitations - History of Present Illness Initial comments: Patient is a pleasant 87-year-old gentleman presenting to the emergency department with difficulty in breathing. Patient is a poor historian and majority of history comes from the . Patient has dyspnea that is mild at this point. Dyspnea seems more exertional. Rare cough. Patient has had some chest discomfort. Patient has difficulty describing his chest discomfort. No discomfort at this time. Patient was in the hospital yesterday however refuses to stay at that time. Patient has continued symptoms and they have decided to come back. - Related Data Home Medications Medication Instructions Recorded Confirmed Atenolol [Tenormin] 50 mg PO BID 04/15/15 10/11/18 Benazepril HCl [Lotensin] 20 mg PO DAILY 04/15/15 10/11/18 Cholecalciferol [Vitamin D3] 1,000 unit PO DAILY 04/15/15 10/11/18 Clopidogrel [Plavix] 75 mg PO DAILY 04/15/15 10/11/18 Isosorbide Mononitrate ER [Imdur] 30 mg PO DAILY 04/15/15 10/11/18 Multivitamin [Men's Multi-Vitamin] 1 tab PO DAILY 04/15/15 10/11/18 Niacin [Niaspan] 1,000 mg PO DAILY 04/15/15 10/11/18 Omeprazole [PriLOSEC] 20 mg PO BID 04/15/15 10/11/18 Vitamin E 1,000 unit PO DAILY 04/15/15 10/11/18 amLODIPine [Norvasc] 5 mg PO BID 04/15/15 10/11/18 Nitroglycerin Sl Tabs [Nitrostat] 0.4 mg SUBLINGUAL Q5M PRN 05/14/16 10/11/18 glipiZIDE XL [Glucotrol XL] 5 mg PO DAILY 04/29/18 10/11/18 ALPRAZolam [Xanax] 0.25 mg PO BID PRN 10/10/18 10/11/18 Allopurinol [Zyloprim] 100 mg PO DAILY 10/10/18 10/11/18 hydrALAZINE HCL [Apresoline] 25 mg PO BID 10/10/18 10/11/18 Furosemide [Lasix] 20 mg PO DAILY 10/11/18 10/11/18 Previous Rx's Medication Instructions Recorded Aspirin 81 mg PO DAILY #30 chew 05/07/18 Amoxic-Pot Clav 875-125Mg 1 tab PO Q12HR #14 tablet 10/10/18 [Augmentin 875-125] Allergies Allergy/AdvReac Type Severity Reaction Status Date / Time No Known Allergies Allergy Verified 10/11/18 20:29 Review of Systems ROS Statement: Those systems with pertinent positive or pertinent negative responses have been documented in the HPI. ROS Other: All systems not noted in ROS Statement are negative. Constitutional: Denies: fever Eyes: Denies: eye pain ENT: Denies: ear pain Respiratory: Reports: dyspnea Cardiovascular: Reports: chest pain Endocrine: Reports: fatigue Gastrointestinal: Denies: abdominal pain Genitourinary: Denies: dysuria Musculoskeletal: Denies: back pain Skin: Denies: rash Neurological: Denies: weakness Past Medical History Past Medical History: Coronary Artery Disease (CAD), Diabetes Mellitus, GERD/ Reflux, Hyperlipidemia, Hypertension, Myocardial Infarction ([place]) Last Myocardial Infarction Date:: 1949 History of Any Multi-Drug Resistant Organisms: None Reported Past Surgical History: Coronary Bypass/CABG Additional Past Surgical History / Comment(s): STATES 3 OR 4 BYPASS Past Anesthesia/Blood Transfusion Reactions: No Reported Reaction Past Psychological History: No Psychological Hx Reported Smoking Status: Former smoker Past Alcohol Use History: None Reported Past Drug Use History: None Reported - Past Family History Brother(s) Family Medical History: Myocardial Infarction ([place]) General Exam Limitations: no limitations General appearance: alert, in no apparent distress Head exam: Present: atraumatic Eye exam: Present: normal appearance, PERRL ENT exam: Present: normal oropharynx Neck exam: Present: normal inspection Respiratory exam: Present: decreased breath sounds Cardiovascular Exam: Present: regular rate, normal rhythm, systolic murmur GI/Abdominal exam: Present: soft. Absent: tenderness Extremities exam: Present: pedal edema. Absent: calf tenderness Neurological exam: Present: alert Psychiatric exam: Present: normal affect, normal mood Skin exam: Present: normal color Course Vital Signs 10/11/18 10/11/18 18:59 21:37 Temperature 98 F Pulse Rate 72 74 Respiratory 26 H 20 Rate Blood Pressure 147/77 149/58 O2 Sat by Pulse 93 L 95 Oximetry EKG Findings - EKG Comments: EKG Findings:: Sinus rhythm at 61. For screening AV block with a VT of 228. QRS 128. QT 478. QTC 41. Left axis. Left bundle branch block. Lateral T wave inversion. Medical Decision Making - Medical Decision Making Patient reevaluated. Patient and family updated. Case discussed in detail with Dr. Garcia, covering for Dr. Hector, who admits for Dr. Ramsay. - Lab Data Result diagrams: 10/11/18 19:58 10/11/18 19:58 Lab Results 10/11/18 10/11/18 10/11/18 Range/Units 19:58 19:58 19:58 WBC 6.3 (3.8-10.6) k/uL RBC 3.55 L (4.30-5.90) m/uL Hgb 11.6 L (13.0-17.5) gm/dL Hct 36.2 L (39.0-53.0) % MCV 102.0 H (80.0-100.0) fL MCH 32.8 (25.0-35.0) pg MCHC 32.1 (31.0-37.0) g/dL RDW 15.6 H (11.5-15.5) % Plt Count 163 (150-450) k/uL Neutrophils % 59 % Lymphocytes % 21 % Monocytes % 9 % Eosinophils % 9 % Basophils % 0 % Neutrophils # 3.7 (1.3-7.7) k/uL Lymphocytes # 1.3 (1.0-4.8) k/uL Monocytes # 0.6 (0-1.0) k/uL Eosinophils # 0.6 (0-0.7) k/uL Basophils # 0.0 (0-0.2) k/uL Hypochromasia Slight Macrocytosis Slight PT (9.0-12.0) sec INR (<1.2) APTT (22.0-30.0) sec Sodium 142 (137-145) mmol/L Potassium 4.3 (3.5-5.1) mmol/L Chloride 112 H (98-107) mmol/L Carbon Dioxide 20 L (22-30) mmol/L Anion Gap 10 mmol/L BUN 30 H (9-20) mg/dL Creatinine 1.91 H (0.66-1.25) mg/dL Est GFR (CKD-EPI)AfAm 35 (>60 ml/min/1.73 sqM) Est GFR (CKD-EPI)NonAf 30 (>60 ml/min/1.73 sqM) Glucose 105 H (74-99) mg/dL Calcium 9.5 (8.4-10.2) mg/dL Total Bilirubin 0.8 (0.2-1.3) mg/dL AST 43 (17-59) U/L ALT 34 (21-72) U/L Alkaline Phosphatase 90 (38-126) U/L Total Creatine Kinase 191 H (55-170) U/L CK-MB (CK-2) 1.9 (0.0-2.4) ng/mL CK-MB (CK-2) Rel Index 1.0 Troponin I 0.031 (0.000-0.034) ng/mL NT-Pro-B Natriuret Pep pg/mL Total Protein 7.3 (6.3-8.2) g/dL Albumin 3.9 (3.5-5.0) g/dL 10/11/18 10/11/18 Range/Units 19:58 19:58 WBC (3.8-10.6) k/uL RBC (4.30-5.90) m/uL Hgb (13.0-17.5) gm/dL Hct (39.0-53.0) % MCV (80.0-100.0) fL MCH (25.0-35.0) pg MCHC (31.0-37.0) g/dL RDW (11.5-15.5) % Plt Count (150-450) k/uL Neutrophils % % Lymphocytes % % Monocytes % % Eosinophils % % Basophils % % Neutrophils # (1.3-7.7) k/uL Lymphocytes # (1.0-4.8) k/uL Monocytes # (0-1.0) k/uL Eosinophils # (0-0.7) k/uL Basophils # (0-0.2) k/uL Hypochromasia Macrocytosis PT 11.2 (9.0-12.0) sec INR 1.1 (<1.2) APTT 26.7 (22.0-30.0) sec Sodium (137-145) mmol/L Potassium (3.5-5.1) mmol/L Chloride (98-107) mmol/L Carbon Dioxide (22-30) mmol/L Anion Gap mmol/L BUN (9-20) mg/dL Creatinine (0.66-1.25) mg/dL Est GFR (CKD-EPI)AfAm (>60 ml/min/1.73 sqM) Est GFR (CKD-EPI)NonAf (>60 ml/min/1.73 sqM) Glucose (74-99) mg/dL Calcium (8.4-10.2) mg/dL Total Bilirubin (0.2-1.3) mg/dL AST (17-59) U/L ALT (21-72) U/L Alkaline Phosphatase (38-126) U/L Total Creatine Kinase (55-170) U/L CK-MB (CK-2) (0.0-2.4) ng/mL CK-MB (CK-2) Rel Index Troponin I (0.000-0.034) ng/mL NT-Pro-B Natriuret Pep 9430 pg/mL Total Protein (6.3-8.2) g/dL Albumin (3.5-5.0) g/dL - Radiology Data Radiology results: image reviewed (Chest x-ray concerning for CHF) Disposition Clinical Impression: Congestive heart failure Disposition: ADMITTED IP TO THIS HOSP Is patient prescribed a controlled substance at d/c from ED?: No Referrals: Charli Ramsay DO [Primary Care Provider] - 1-2 days Decision Time: 22:49
[2018-10-11 21:43] LABS: Basophils % (A) 0 %; Eosinophils # (A) 0.6 k/uL (0-0.7); Eosinophils % (A) 9 %; HCT 36.2 % (39.0-53.0); HGB 11.6 gm/dL (13.0-17.5); Hypochromasia Slight; Lymphocytes # (A) 1.3 k/uL (1.0-4.8); Lymphocytes % (A) 21 %; MCH 32.8 pg (25.0-35.0); MCHC 32.1 g/dL (31.0-37.0); Macrocytosis Slight; Mean Platelet Volume 7.8; Monocytes # (A) 0.6 k/uL (0-1.0); Monocytes % (A) 9 %; Neutrophils # (A) 3.7 k/uL (1.3-7.7); Neutrophils % (A) 59 %; Platelet Count 163 k/uL (150-450); RBC 3.55 m/uL (4.30-5.90); RDW 15.6 % (11.5-15.5); WBC 6.3 k/uL (3.8-10.6)
[2018-10-11 21:53] LABS: Albumin 3.9 g/dL (3.5-5.0); Calcium 9.5 mg/dL (8.4-10.2); INR 1.1 (<1.2); Partial Thromboplastin Time 26.7 sec (22.0-30.0); Potassium 4.3 mmol/L (3.5-5.1); Prothrombin Time 11.2 sec (9.0-12.0); Total Bilirubin 0.8 mg/dL (0.2-1.3); Total Protein 7.3 g/dL (6.3-8.2)
--- NOTE | 2018-10-11 22:10 | XR ---
EXAMINATION TYPE: XR chest 2V DATE OF EXAM: 10/11/2018 COMPARISON: Yesterday HISTORY: Short of breath TECHNIQUE: Frontal and lateral views of the chest are obtained. FINDINGS: There is coarsening of interstitial pulmonary markings. There is blunting of costophrenic angles. There is mild pulmonary congestion. Thoracic aorta is atheromatous. There is probably calcifi ed pleural plaque on the left side. Bony thorax is intact. IMPRESSION: Small pleural effusions could relate to mild heart failure. No significant change compar ed to yesterday. Mild pulmonary fibrosis.
[2018-10-11 22:20] LABS: Creatine Kinase MB 1.9 ng/mL (0.0-2.4); Troponin I 0.031 ng/mL (0.000-0.034)
[2018-10-11] MEDS ORDERED: ASPIRIN 325 MG TAB PO STA (22:50)
[2018-10-11] MEDS: FUROSEMIDE 10 MG/ML 4 ML VIAL IV SCH (23:38)
[2018-10-12 00:24] VITALS: RESP 18
[2018-10-12] MEDS: NITROGLYCERIN OINT 1 INCH/GM PACKET TOPICAL SCH ×5 (00:34→20:35)
[2018-10-12] MEDS ORDERED: amLODIPine 5 MG TAB PO STA (00:40)
[2018-10-12] MEDS ORDERED: ALPRAZolam 0.25 MG TAB PO PRN (00:42)
[2018-10-12] MEDS ORDERED: NITROGLYCERIN SL TABS 0.4 MG TAB SUBLINGUAL PRN (00:42)
[2018-10-12] MEDS ORDERED: MELATONIN 5 MG TABLET PO SCH (00:45)
[2018-10-12] MEDS: MELATONIN 5 MG TABLET PO PRN ×2 (01:06→23:06)
[2018-10-12 04:03] LABS: Creatine Kinase MB 1.4 ng/mL (0.0-2.4); Troponin I 0.029 ng/mL (0.000-0.034)
[2018-10-12 05:54] LABS: Glucose,Whole Blood 77 mg/dL (75-99)
[2018-10-12] MEDS: FUROSEMIDE 10 MG/ML 4 ML VIAL IV SCH ×3 (06:22→23:05)
[2018-10-12 08:25] LABS: Creatine Kinase MB 1.2 ng/mL (0.0-2.4); Troponin I 0.029 ng/mL (0.000-0.034)
[2018-10-12] MEDS ORDERED: ATENOLOL 50 MG TAB PO SCH (09:00)
[2018-10-12] MEDS: VITAMIN E (DL,TOCOPHERYL ACET) 400 UNIT CAP PO SCH (09:27)
[2018-10-12] MEDS: ISOSORBIDE MONONITRATE ER 30 MG TAB.ER.24H PO SCH (09:27)
[2018-10-12] MEDS: PANTOPRAZOLE 40 MG TABLET PO SCH ×2 (09:28→20:33)
[2018-10-12] MEDS: CHOLECALCIFEROL 1,000 UNIT TAB PO SCH (09:28)
[2018-10-12] MEDS: CLOPIDOGREL 75 MG TAB PO SCH (09:28)
[2018-10-12] MEDS: LISINOPRIL 20 MG TAB PO SCH (09:28)
[2018-10-12] MEDS: NIACIN TR 500 MG CAPSULE.ER PO SCH (09:28)
[2018-10-12] MEDS: AMOXIC-POT CLAV 875-125MG 1 EACH TAB PO SCH ×2 (09:28→20:33)
[2018-10-12] MEDS: ALLOPURINOL 100 MG TAB PO SCH (09:28)
[2018-10-12] MEDS: hydrALAZINE HCL 25 MG TAB PO SCH ×2 (09:28→20:33)
[2018-10-12] MEDS: ASPIRIN 325 MG TAB PO SCH (09:29)
[2018-10-12] MEDS: MULTIVITAMINS, THERA 1 EACH TAB PO SCH (09:29)
[2018-10-12] MEDS: amLODIPine 5 MG TAB PO SCH ×2 (09:29→20:32)
[2018-10-12 11:04] LABS: Glucose,Whole Blood 163 mg/dL (75-99)
[2018-10-12] MEDS: ASPIRIN 81 MG PO SCH (11:11)
[2018-10-12 12:52] VITALS: BMI 27.1
--- NOTE | 2018-10-12 13:25 | P.CRDCN ---
History of Present Illness History of present illness: This is Dr. Kuo dictating a consult on this patient The patient was interviewed and examined by me IMPRESSION / ASSESSMENT: Shortness of breath which is not improved Systolic murmur Uncontrolled hypertension History of hypertension diabetes type 2 dyslipidemia history of CAD and VA in the past PLAN: Change atenolol to carvedilol 12.5 mg twice daily 2-D echo and Doppler study Diuretics blood pressure is elevated in the 170s systolic HPI patient presenting with shortness of breath. ROS: No fever chills or rigors, no cough, phlegm or expectoration, no nausea, vomiting or diarrhea, no hematuria, dysuria, no musculoskeletal complaints, no strokes or seizures, no skin lesions. EXAMINATION Heart rates in the 70s No JVD Breath sounds are reduced bilaterally with bilateral be is alert crackles Heart sounds are soft soft systolic murmur Extremity is warm no edema REVIEW OF LABS, ECG sinus rhythm mildly prolonged ME interval IVCD left bundle branch block pattern left axis deviation QRS width 128 ms Inverted T waves in V5 and V6 Chest x-ray shows small pleural effusions, increased interstitial markings consistent with mild pulmonary fibrosis, per radiology 2 normal cardiac enzymes sodium and potassium are normal low bicarb, BUN 30 creatinine 1.9 GFR in the 30s Hemoglobin 11.6 Past Medical History Past Medical History: Coronary Artery Disease (CAD), Diabetes Mellitus, GERD/ Reflux, Hyperlipidemia, Hypertension, Myocardial Infarction (VA) Last Myocardial Infarction Date:: 1949 History of Any Multi-Drug Resistant Organisms: None Reported Past Surgical History: Coronary Bypass/CABG Additional Past Surgical History / Comment(s): STATES 3 OR 4 BYPASS Past Anesthesia/Blood Transfusion Reactions: No Reported Reaction Past Psychological History: No Psychological Hx Reported Smoking Status: Former smoker Past Alcohol Use History: None Reported Past Drug Use History: None Reported - Past Family History Brother(s) Family Medical History: Myocardial Infarction (VA) Medications and Allergies Home Medications Medication Instructions Recorded Confirmed Type Atenolol [Tenormin] 50 mg PO BID 04/15/15 10/11/18 History Benazepril HCl [Lotensin] 20 mg PO DAILY 04/15/15 10/11/18 History Cholecalciferol [Vitamin D3] 1,000 unit PO DAILY 04/15/15 10/11/18 History Clopidogrel [Plavix] 75 mg PO DAILY 04/15/15 10/11/18 History Isosorbide Mononitrate ER [Imdur] 30 mg PO DAILY 04/15/15 10/11/18 History Multivitamin [Men's Multi-Vitamin] 1 tab PO DAILY 04/15/15 10/11/18 History Niacin [Niaspan] 1,000 mg PO DAILY 04/15/15 10/11/18 History Omeprazole [PriLOSEC] 20 mg PO BID 04/15/15 10/11/18 History Vitamin E 1,000 unit PO DAILY 04/15/15 10/11/18 History amLODIPine [Norvasc] 5 mg PO BID 04/15/15 10/11/18 History Nitroglycerin Sl Tabs [Nitrostat] 0.4 mg SUBLINGUAL Q5M PRN 05/14/16 10/11/18 History glipiZIDE XL [Glucotrol XL] 5 mg PO DAILY 04/29/18 10/11/18 History Aspirin 81 mg PO DAILY #30 chew 05/07/18 10/11/18 Rx ALPRAZolam [Xanax] 0.25 mg PO BID PRN 10/10/18 10/11/18 History Allopurinol [Zyloprim] 100 mg PO DAILY 10/10/18 10/11/18 History Amoxic-Pot Clav 875-125Mg 1 tab PO Q12HR #14 tablet 10/10/18 10/11/18 Rx [Augmentin 875-125] hydrALAZINE HCL [Apresoline] 25 mg PO BID 10/10/18 10/11/18 History Furosemide [Lasix] 20 mg PO DAILY 10/11/18 10/11/18 History Allergies Allergy/AdvReac Type Severity Reaction Status Date / Time No Known Allergies Allergy Verified 10/11/18 20:29 Physical Exam Vitals: Vital Signs Temp Pulse Pulse Resp BP BP Pulse Ox 10/12/18 04:00 74 18 10/12/18 03:37 97.7 F 74 18 170/74 91 L 10/12/18 00:09 98.0 F 79 18 182/83 93 L 10/12/18 00:00 79 18 10/11/18 23:00 60 22 141/93 89 L 10/11/18 22:00 62 31 H 95 10/11/18 21:37 74 20 149/58 95 12/28/18 21:31 149/58 10/11/18 18:59 98 F 72 26 H 147/77 93 L Intake and Output 10/11/18 10/12/18 10/12/18 22:59 06:59 14:59 Output Total 400 Balance -400 Output: Urine 400 Other: Voiding Method Urinal Weight 77.111 kg 78.5 kg Results 10/11/18 19:58 10/11/18 19:58 Cardiac Enzymes 10/11/1818 10/12/18 Range/Units 19:58 19:58 02:14 AST 43 (17-59) U/L CK-MB (CK-2) 1.9 1.4 (0.0-2.4) ng/mL Troponin I 0.031 0.029 (0.000-0.034) ng/mL Coagulation 10/11/18 Range/Units 19:58 PT 11.2 (9.0-12.0) sec APTT 26.7 (22.0-30.0) sec CBC 10/11/18 Range/Units 19:58 WBC 6.3 (3.8-10.6) k/uL RBC 3.55 L (4.30-5.90) m/uL Hgb 11.6 L (13.0-17.5) gm/dL Hct 36.2 L (39.0-53.0) % Plt Count 163 (150-450) k/uL Comprehensive Metabolic Panel 10/11/18 Range/Units 19:58 Sodium 142 (137-145) mmol/L Potassium 4.3 (3.5-5.1) mmol/L Chloride 112 H (98-107) mmol/L Carbon Dioxide 20 L (22-30) mmol/L BUN 30 H (9-20) mg/dL Creatinine 1.91 H (0.66-1.25) mg/dL Glucose 105 H (74-99) mg/dL Calcium 9.5 (8.4-10.2) mg/dL AST 43 (17-59) U/L ALT 34 (21-72) U/L Alkaline Phosphatase 90 (38-126) U/L Total Protein 7.3 (6.3-8.2) g/dL Albumin 3.9 (3.5-5.0) g/dL Current Medications Generic Name Dose Route Start Last Admin Trade Name Freq PRN Reason Stop Dose Admin Allopurinol 100 mg 10/12/18 09:00 Zyloprim PO DAILY [facility] Alprazolam 0.25 mg 10/12/18 00:42 Xanax PO BID PRN Anxiety Amlodipine Besylate 5 mg 10/12/18 09:00 Norvasc PO BID [facility] Amoxicillin/Clavulanate Potassium 1 each 10/12/18 09:00 Augmentin 875-125 PO Q12HR [facility] Aspirin 325 mg 10/12/18 09:00 Aspirin PO DAILY [facility] Aspirin 81 mg 10/12/18 09:00 Aspirin PO DAILY [facility] Atenolol 50 mg 10/12/18 09:00 Tenormin PO BID [facility] Cholecalciferol 1,000 unit 10/12/18 09:00 Vitamin D3 PO DAILY [facility] Clopidogrel Bisulfate 75 mg 10/12/18 09:00 Plavix PO DAILY [facility] Furosemide 40 mg 10/11/18 23:00 10/12/18 06:22 Lasix IV 40 mg Q8H [facility] Administration Glipizide 5 mg 10/12/18 09:00 Glucotrol PO BID [facility] Hydralazine HCl 25 mg 10/12/18 09:00 Apresoline PO BID [facility] Isosorbide Mononitrate 30 mg 10/12/18 09:00 Imdur PO DAILY [facility] Lisinopril 20 mg 10/12/18 09:00 Zestril PO DAILY [facility] Melatonin 5 mg 10/12/18 01:00 10/12/18 01:06 Melatonin PO 5 mg HS PRN Administration Insomnia Multivitamins 1 each 10/12/18 09:00 Theragran PO DAILY [facility] Niacin 1,000 mg 10/12/18 09:00 Niacin Tr PO DAILY [facility] Nitroglycerin 1 inch 10/11/18 23:00 10/12/18 00:34 Nitro-Bid Oint TOPICAL Not Given QID [facility] Nitroglycerin 0.4 mg 10/12/18 00:42 Nitrostat SUBLINGUAL Q5M PRN Chest Pain Pantoprazole Sodium 40 mg 10/12/18 09:00 Protonix PO BID [facility] Sodium Chloride 10 ml 10/12/18 09:00 Saline Flush IV BID [facility] Vitamin E 800 unit 10/12/18 09:00 Vitamin E PO DAILY [facility] Intake and Output 10/11/18 10/12/18 10/12/18 22:59 06:59 14:59 Output Total 400 Balance -400 Output: Urine 400 Other: Voiding Method Urinal Weight 77.111 kg 78.5 kg 10/11/18 19:58 10/11/18 19:58
--- NOTE | 2018-10-12 15:13 | ECHOF ---
Referral Reason:Heart Failure MEASUREMENTS -------- HEIGHT: 170.2 cm WEIGHT: 78.5 kg BP: 170/74 IVSd: 1.3 cm (0.6 - 1.1) LVIDd: 4.5 cm (3.9 - 5.3) LVPWd: 1.3 cm (0.6 - 1.1) IVSs: 1.6 cm LVIDs: 2.8 cm LVPWs: 1.6 cm RVIDd: 3.0 cm (< 3.3) LAESV Index (A-L): 30.78 ml/m Ao Diam: 3.4 cm (2.0 - 3.7) LA Diam: 4.8 cm (2.7 - 3.8) AV Cusp: 0.8 cm (1.5 - 2.6) EPSS: 0.4 cm AV maxP.18 mmHg AV meanP.14 mmHg RAP: 5.00 mmHg RVSP: 56.47 mmHg MV EF SLOPE: 100.58 mm/s (70 - 150) MV EXCURSION: 1.90 cm (> 18.000) FINDINGS -------- Undetermined rhythm. This was a technically adequate study. The left ventricular size is normal. There is mild concentric left ventricular hypertrophy. Overa ll left ventricular systolic function is normal with, an EF between 55 - 60 %. The right ventricle is normal in size and function. LA is midly dilated 29-33ml/m2. RA appears enlarged. Aortic valve is trileaflet and is moderately thickened. There is no evidence of aortic regurgitatio n. There is moderate aortic stenosis present. Peak/mean gradient across the Aortic Valve is 34.18 mmHg / 22.14mmHg. The mitral valve leaflets are mildly thickened. Moderate mitral annular calcification present. Mi ld mitral regurgitation is present. Moderate tricuspid regurgitation present. There is moderate pulmonary hypertension. The right marylu tricular systolic pressure, as measured by Doppler, is 56.47mmHg. Trace/mild (physiologic) pulmonic regurgitation. The aortic root size is normal. Normal inferior vena cava with normal inspiratory collapse consistent with estimated right atrial pre ssure of 5 mmHg. There is a small pericardial effusion located near the left ventricle. CONCLUSIONS -------- 1. Undetermined rhythm. 2. This was a technically adequate study. 3. The left ventricular size is normal. 4. There is mild concentric left ventricular hypertrophy. 5. Overall left ventricular systolic function is normal with, an EF between 55 - 60 %. 6. LA is midly dilated 29-33ml/m2. 7. RA appears enlarged. 8. Aortic valve is trileaflet and is moderately thickened. 9. There is moderate aortic stenosis present. 10. Peak/mean gradient across the Aortic Valve is 34.18mmHg / 22.14mmHg. 11. The mitral valve leaflets are mildly thickened. 12. Moderate mitral annular calcification present. 13. Mild mitral regurgitation is present. 14. Moderate tricuspid regurgitation present. 15. There is moderate pulmonary hypertension. 16. The right ventricular systolic pressure, as measured by Doppler, is 56.47mmHg. 17. Trace/mild (physiologic) pulmonic regurgitation. 18. The aortic root size is normal. 19. There is a small pericardial effusion located near the left ventricle. CLEAT THROWER: Jean-Claude Hastings RDCS
[2018-10-12 16:41] LABS: Glucose,Whole Blood 118 mg/dL (75-99)
[2018-10-12] MEDS: CARVEDILOL 12.5 MG TAB PO SCH (17:12)
--- NOTE | 2018-10-12 18:40 | HP ---
HISTORY AND PHYSICAL CHIEF COMPLAINT: Shortness of breath. HISTORY OF PRESENT ILLNESS: This 87-year-old gentleman with a past medical history of multiple medical problems including CAD, history of CHF, diabetes, GERD, hypertension, hyperlipidemia, history of myocardial infarction, history of CAD, CABG being followed by Dr. Ramsay in the outpatient setting, was complaining of shortness of breath. The patient had difficulty breathing and the patient came to [facility] and was admitted for further evaluation and treatment. CHF was suspected. Patient was started on IV diuretics. A 2D echo showed ejection fraction about 50-55 percent, which is normal and also multiple abnormalities including possibly moderate aortic stenosis also. Moderate tricuspid regurgitation was also noted. There is no history of fever, rigors. No history of headache, loss of consciousness, seizures at this time. Aortic root size found to be normal. PAST MEDICAL HISTORY: History of CAD, history of diabetes Type 2, history of GERD, hypertension, hyperlipidemia, history of myocardial infarction, CAD, CABG. MEDICATIONS: Prior to admission include home medications are medications are: 1. Apresoline 25 mg p.o. b.i.d. 2. Glucotrol XL 5 mg p.o. daily. 3. Norvasc 5 mg p.o. b.i.d. 4. Vitamin D 1000 mg p.o. daily. 5. Prilosec 20 mg b.i.d. 6. Nitrostat 0.4 mg sublingual p.r.n. 7. Niaspan 1000 mg p.o. daily. 8. Multivitamins one p.o. daily. 9. Imdur 30 mg daily. 10.Lasix 20 mg daily. 11.Plavix 75 mg. 12.Vitamin D3 1000 b.i.d. 13.Lotensin 20 mg p.o. daily. 14.Tenormin 50 mg p.o. b.i.d. 15.Aspirin 81 mg p.o. 16.Augmentin 875 mg 1 tablet p.o. b.i.d. 17.Zyloprim 100 mg p.o. 18.Xanax 0.5 daily b.i.d. p.r.n. ALLERGIES: None. FAMILY HISTORY: History of myocardial infarction in the family. SOCIAL HISTORY: Remote history of smoking. REVIEW OF SYSTEMS: ENT: Diminished hearing or vision. CARDIOVASCULAR: As mentioned earlier. RESPIRATORY: As mentioned earlier. GI no nausea or vomiting. no dysuria. Nervous system: No numbness or weakness. Allergy/immunology: No asthma or hayfever. Musculoskeletal as mentioned earlier. HEMATOLOGY/ONCOLOGY: No history of anemia. Endocrine: No history of diabetes or hypothyroidism. Constitutional: As mentioned earlier. Dermatology: Negative. Rheumatology: Negative. Psychiatry: As mentioned earlier. PHYSICAL EXAMINATION: Alert and oriented x3. Pulse is 78, blood pressure 130/60. Respiration 18, temperature 97.8, pulse ox 98% on room air. Conjunctivae normal. Oral mucosa moist. Neck is no jugular venous distention. No carotid bruit. No lymph node enlargement. Cardiovascular: S1, S2 muffled. Ejection systolic murmur. No S3, no S4. Respirations: Breath sounds diminished in the bases. A few scattered rhonchi and crackles. ABDOMEN: Soft, nontender. No mass palpable. LEGS: Minimal edema. Nervous system: Higher functions as mentioned earlier. Moves all 4 limbs. No focal motor or sensory deficits. Lymphatics: No lymph nodes palpable in the neck, axillae or groin. Skin: No ulcer, rash or bleeding. Joints: No active deforming arthropathy. LABS: WBC 6.2, hemoglobin 11.6 and sodium 140, potassium 4.3. Creatinine is 1.9. ASSESSMENT: 1. Shortness of breath for further evaluation, congestive heart failure acute exacerbation with acute on chronic diastolic dysfunction with ejection fraction 50- 60 percent. 2. Moderate aortic STENOSIS and moderate tricuspid regurgitation. 3. Increased creatinine with chronic kidney disease stage III. 4. Mild anemia. 5. Increased MCV. 6. History of coronary artery disease. 7. Diabetes mellitus type 2. 8. Gastroesophageal reflux disease. 9. Hypertension. 10.Hyperlipidemia. 11.History of myocardial infarction. 12.History of coronary artery disease, coronary artery bypass grafting. 13.Remote history of nicotine dependence. 14.NO CODE, NO CPR, NO VENT. RECOMMENDATIONS AND DISCUSSION: This 87-year-old gentleman who presented with multiple complex medical issues, we will monitor the patient closely, continue the current medications, management and symptomatic treatment. Patient is started on IV diuretics. Monitor fluid and electrolyte balance closely, limiting fluid intake. Continue the rest of medications. Bronchodilators. Otherwise, closely follow with Cardiology. Prognosis guarded because of multiple complex medical issues. Further recommendations to follow. Copy of dictation being forwarded to Dr. Ramsay, who is the primary physician. MMODL / IJN: [id number] / CHANDAN
[2018-10-12 19:18] LABS: Appearance,Urine Clear (Clear); Bilirubin,Urine Negative (Negative); Blood,Urine Negative (Negative); Color,Urine Yellow; Glucose,Urine (UA) Negative (Negative); Hyaline Casts,Urine 1 /lpf (0-2); Ketones,Urine Negative (Negative); Leukocyte Esterase,Urine Negative (Negative); Mucus,Urine Rare /hpf; Nitrite,Urine Negative (Negative); PH, Urine 5.5 (5.0-8.0); Protein,Urine 1+ (Negative); Specific Gravity,Urine 1.009 (1.001-1.035); Urobilinogen,Urine <2.0 mg/dL (<2.0); WBC,Urine 1 /hpf (0-5)
[2018-10-12] MEDS: HEPARIN SODIUM,PORCINE 5,000 UNIT/ML 1 ML VIAL SQ SCH (20:33)
[2018-10-12 21:31] LABS: Glucose,Whole Blood 172 mg/dL (75-99)
[2018-10-13] MEDS: ACETAMINOPHEN TAB 500 MG TAB PO PRN ×2 (00:59→23:04)
[2018-10-13 06:14] LABS: Basophils % (A) 0 %; Eosinophils # (A) 0.6 k/uL (0-0.7); Eosinophils % (A) 10 %; HGB 10.6 gm/dL (13.0-17.5); Hypochromasia Slight; Lymphocytes # (A) 1.3 k/uL (1.0-4.8); Lymphocytes % (A) 23 %; MCH 32.4 pg (25.0-35.0); Macrocytosis Slight; Mean Platelet Volume 8.3; Monocytes # (A) 0.5 k/uL (0-1.0); Monocytes % (A) 9 %; Neutrophils # (A) 3.2 k/uL (1.3-7.7); Neutrophils % (A) 55 %; Platelet Count 143 k/uL (150-450); RBC 3.27 m/uL (4.30-5.90); RDW 15.5 % (11.5-15.5); WBC 5.8 k/uL (3.8-10.6)
[2018-10-13 06:31] LABS: Calcium 9.1 mg/dL (8.4-10.2); Potassium 3.8 mmol/L (3.5-5.1)
[2018-10-13 06:31] LABS: Glucose,Whole Blood 77 mg/dL (75-99)
[2018-10-13] MEDS: CARVEDILOL 12.5 MG TAB PO SCH ×2 (06:33→17:34)
[2018-10-13] MEDS: FUROSEMIDE 10 MG/ML 4 ML VIAL IV SCH (06:34)
[2018-10-13] MEDS: AMOXIC-POT CLAV 875-125MG 1 EACH TAB PO SCH ×2 (08:01→20:42)
[2018-10-13] MEDS: hydrALAZINE HCL 25 MG TAB PO SCH ×2 (08:01→20:42)
[2018-10-13] MEDS: NIACIN TR 500 MG CAPSULE.ER PO SCH (08:01)
[2018-10-13] MEDS: VITAMIN E (DL,TOCOPHERYL ACET) 400 UNIT CAP PO SCH (08:01)
[2018-10-13] MEDS: ALLOPURINOL 100 MG TAB PO SCH (08:02)
[2018-10-13] MEDS: PANTOPRAZOLE 40 MG TABLET PO SCH ×2 (08:02→20:42)
[2018-10-13] MEDS: amLODIPine 5 MG TAB PO SCH ×2 (08:02→20:42)
[2018-10-13] MEDS: ASPIRIN 325 MG TAB PO SCH (08:02)
[2018-10-13] MEDS: ASPIRIN 81 MG PO SCH (08:02)
[2018-10-13] MEDS: CLOPIDOGREL 75 MG TAB PO SCH (08:02)
[2018-10-13] MEDS: CHOLECALCIFEROL 1,000 UNIT TAB PO SCH (08:02)
[2018-10-13] MEDS: LISINOPRIL 20 MG TAB PO SCH (08:02)
[2018-10-13] MEDS: ISOSORBIDE MONONITRATE ER 30 MG TAB.ER.24H PO SCH (08:02)
[2018-10-13] MEDS: HEPARIN SODIUM,PORCINE 5,000 UNIT/ML 1 ML VIAL SQ SCH ×2 (08:02→20:42)
[2018-10-13] MEDS: NITROGLYCERIN OINT 1 INCH/GM PACKET TOPICAL SCH ×2 (08:03→14:17)
[2018-10-13] MEDS: MULTIVITAMINS, THERA 1 EACH TAB PO SCH (08:08)
[2018-10-13 11:14] LABS: Glucose,Whole Blood 89 mg/dL (75-99)
--- NOTE | 2018-10-13 14:04 | P.PN ---
Subjective Patient still mildly short of breath Mild JVD noted Breath sounds have improved Blood pressure has improved since admission after switching to carvedilol Hemoglobin 10.6 Sodium 141 potassium 3.8 BUN 33 creatinine 2.04 2-D echo shows preserved in the size and function with moderate aortic regurgitation and moderate pulmonary hypertension with moderate tricuspid regurgitation Chest x-ray previously suggested probably fibrosis which is consistent with the PA pressures Impression Patient presented with increasing shortness of breath Moderate aortic stenosis Moderate tricuspid regurgitation with moderate any hypertension Hypertensive heart disease with diastolic dysfunction in addition to his chronic pulmonary problems Type 2 diabetes Suggest Switched to Lasix 40 mg by mouth twice daily. Stop IV Lasix Stop Nitropaste Follow blood pressure and maximizing antihypertensive therapy Objective - Vital Signs Vital signs: Vital Signs Temp 97.6 F 10/13/18 12:00 Pulse 60 10/13/18 12:00 Resp 18 10/13/18 12:00 BP 143/66 10/13/18 12:00 Pulse Ox 95 10/13/18 12:00 Intake & Output 10/12/18 10/13/18 10/13/18 18:59 06:59 18:59 Intake Total 684 240 Output Total 1375 1050 400 Balance -691 -1050 -160 Weight 78.5 kg 76 kg Intake: Oral 684 240 Output: Urine 1375 1050 400 Other: Voiding Method Urinal Urinal Urinal # Voids 1 - Labs CBC & Chem 7: 10/13/18 05:50 10/13/18 05:50 Labs: Abnormal Lab Results - Last 24 Hours (Table) 10/12/18 10/12/18 10/12/18 Range/Units 16:35 18:42 21:29 RBC (4.30-5.90) m/uL Hgb (13.0-17.5) gm/dL Hct (39.0-53.0) % MCV (80.0-100.0) fL Plt Count (150-450) k/uL Chloride (98-107) mmol/L BUN (9-20) mg/dL Creatinine (0.66-1.25) mg/dL POC Glucose (mg/dL) 118 H 172 H (75-99) mg/dL Urine Protein 1+ H (Negative) Urine Mucus Rare H (None) /hpf 10/13/18 10/13/18 Range/Units 05:50 05:50 RBC 3.27 L (4.30-5.90) m/uL Hgb 10.6 L (13.0-17.5) gm/dL Hct 33.0 L (39.0-53.0) % MCV 101.0 H (80.0-100.0) fL Plt Count 143 L (150-450) k/uL Chloride 110 H (98-107) mmol/L BUN 33 H (9-20) mg/dL Creatinine 2.04 H (0.66-1.25) mg/dL POC Glucose (mg/dL) (75-99) mg/dL Urine Protein (Negative) Urine Mucus (None) /hpf
[2018-10-13 16:14] LABS: Glucose,Whole Blood 174 mg/dL (75-99)
--- NOTE | 2018-10-13 17:30 | PN ---
PROGRESS NOTE DATE OF SERVICE: 10/13/2018 This 87-year-old gentleman who was admitted with shortness of breath had CHF acute exacerbation. The patient also had moderate aortic stenosis and moderate tricuspid regurgitation also. The patient is being closely monitored. The patient is on medical treatment. PAST MEDICAL HISTORY: Reviewed. CURRENT MEDICATIONS: Current medications reviewed and include: 1. Tylenol 500 mg q.6h p.r.n. 2. Zyloprim 100 mg p.r.n. 3. Xanax 0.5 b.i.d. 4. Norvasc 5 mg p.o. b.i.d. 5. Augmentin 875 mg p.o. b.i.d. 6. Aspirin 81 mg. 7. Coreg 12.5 mg b.i.d. 8. Vitamin D3 1000 daily. 9. Plavix 75 mg p.o. daily. 10.Lasix 40 mg p.o. daily. 11.Glucotrol 500 mg p.o. b.i.d. 12.Heparin. 13.Losartan 25 mg b.i.d. 14.Imdur 30 mg. 15.Zestril 20 mg p.o. daily. 16.Melatonin 5 mg q.h.s. p.r.n. 17.Multivitamins. 18.Niacin 1000 mg p.o. daily. 19.Nitrostat 0.4 sublingual. 20.Protonix 40 mg b.i.d. 21.Vitamin A 800 units daily. PHYSICAL EXAM: Patient is alert, oriented x3. Pulse 60, blood pressure 143/66, respiration 18, temperature 97.6, pulse ox 94% on room air. HEENT: Conjunctivae normal. NECK: No jugular venous distention. CARDIOVASCULAR: S1, S2 muffled. RESPIRATORY: Breath sounds diminished in the bases. Bilateral scattered rhonchi and crackles. ABDOMEN: Soft, nontender. LEGS: Minimal edema. Nervous system: Diffusely weak. LAB STUDIES: WBC 5.8, hemoglobin 10.6, sodium 140, creatinine is 2.04, previous was 1.91. Historically it is around 1.8. ASSESSMENT: 1. Shortness of breath for evaluation possible congestive heart failure acute exacerbation, acute on chronic diastolic dysfunction, ejection fraction 50-60 percent. 2. Moderate aortic stenosis and moderate tricuspid regurgitation on the 2D echo. 3. Increased creatinine with chronic kidney stage III. 4. Mild anemia. 5. Increased MCV. 6. History of coronary artery disease. 7. Diabetes mellitus type 2. 8. Gastroesophageal reflux disease. 9. Hypertension. 10.Hyperlipidemia. 11.Myocardial infarction. 12.History of coronary artery disease, coronary artery bypass grafting. 13.Remote history of nicotine dependence. 14.NO CODE, NO CPR, NO VENT. RECOMMENDATIONS AND DISCUSSION: Recommend to continue current medications, management and symptomatic treatment. Otherwise, at this time, I recommend to transition diuretics to p.o. diuretics. Monitor creatinine closely. Continue the rest of medications including empiric antibiotics. Otherwise, overall prognosis guarded because of multiple complex medical issues. Further recommendations to follow. See orders for details. MMODL / IJN: [id number] /
[2018-10-13] MEDS: FUROSEMIDE 40 MG TAB PO SCH (17:34)
[2018-10-13 20:31] LABS: Glucose,Whole Blood 176 mg/dL (75-99)
[2018-10-13] MEDS ORDERED: FUROSEMIDE 10 MG/ML 4 ML VIAL IV SCH (21:00)
[2018-10-13] MEDS: MELATONIN 5 MG TABLET PO PRN (23:04)
[2018-10-14 06:05] LABS: Glucose,Whole Blood 128 mg/dL (75-99)
[2018-10-14 06:40] LABS: Basophils % (A) 0 %; Eosinophils # (A) 0.5 k/uL (0-0.7); Eosinophils % (A) 10 %; HCT 33.6 % (39.0-53.0); HGB 10.9 gm/dL (13.0-17.5); Hypochromasia Slight; Lymphocytes # (A) 1.1 k/uL (1.0-4.8); Lymphocytes % (A) 23 %; MCH 32.9 pg (25.0-35.0); MCHC 32.5 g/dL (31.0-37.0); MCV 101.4 fL (80.0-100.0); Macrocytosis Slight; Mean Platelet Volume 8.4; Monocytes # (A) 0.5 k/uL (0-1.0); Monocytes % (A) 9 %; Neutrophils # (A) 2.8 k/uL (1.3-7.7); Neutrophils % (A) 55 %; Platelet Count 156 k/uL (150-450); RBC 3.31 m/uL (4.30-5.90); RDW 15.5 % (11.5-15.5)
[2018-10-14] MEDS: CARVEDILOL 12.5 MG TAB PO SCH ×2 (06:54→16:58)
[2018-10-14 07:04] LABS: Calcium 9.1 mg/dL (8.4-10.2); Potassium 3.7 mmol/L (3.5-5.1)
[2018-10-14] MEDS: VITAMIN E (DL,TOCOPHERYL ACET) 400 UNIT CAP PO SCH (09:16)
[2018-10-14] MEDS: AMOXIC-POT CLAV 875-125MG 1 EACH TAB PO SCH (09:16)
[2018-10-14] MEDS: NIACIN TR 500 MG CAPSULE.ER PO SCH (09:16)
[2018-10-14] MEDS: CLOPIDOGREL 75 MG TAB PO SCH (09:16)
[2018-10-14] MEDS: PANTOPRAZOLE 40 MG TABLET PO SCH (09:17)
[2018-10-14] MEDS: LISINOPRIL 20 MG TAB PO SCH (09:17)
[2018-10-14] MEDS: CHOLECALCIFEROL 1,000 UNIT TAB PO SCH (09:17)
[2018-10-14] MEDS: amLODIPine 5 MG TAB PO SCH (09:17)
[2018-10-14] MEDS: ISOSORBIDE MONONITRATE ER 30 MG TAB.ER.24H PO SCH (09:17)
[2018-10-14] MEDS: ASPIRIN 81 MG PO SCH (09:17)
[2018-10-14] MEDS: HEPARIN SODIUM,PORCINE 5,000 UNIT/ML 1 ML VIAL SQ SCH (09:17)
[2018-10-14] MEDS: hydrALAZINE HCL 25 MG TAB PO SCH (09:17)
[2018-10-14] MEDS: MULTIVITAMINS, THERA 1 EACH TAB PO SCH (09:17)
[2018-10-14] MEDS: FUROSEMIDE 40 MG TAB PO SCH ×2 (09:17→16:58)
[2018-10-14] MEDS: ALLOPURINOL 100 MG TAB PO SCH (09:17)
[2018-10-14 11:59] LABS: Glucose,Whole Blood 80 mg/dL (75-99)
--- NOTE | 2018-10-14 12:14 | P.PN ---
Subjective Progress Note Date: 10/14/18 This is an 87-year-old gentleman who presented to the hospital with symptoms of progressively worsening shortness of breath. He has a known history of coronary artery disease, prior bypass surgery, diabetes, hypertension , hyperlipidemia, remote history of nicotine dependence. He had an echo cardiac gram with Doppler study performed which revealed an ejection fraction of 55-60%. Moderate aortic stenosis, moderate MR, moderate pulmonary hypertension. Patient was initially diuresed with IV Lasix, he is currently on oral diuretics. He was seen and examined today and feels overall significantly better. White blood cell count 5.0, hemoglobin 10.9, platelet count 156. Sodium 140, potassium 3.7, BUN 31, creatinine 2.0. Objective - Vital Signs Vital signs: Vital Signs Temp 98.2 F 10/14/18 08:00 Pulse 78 10/14/18 11:55 Resp 18 10/14/18 11:55 BP 148/67 10/14/18 08:00 Pulse Ox 95 10/14/18 08:00 Intake & Output 10/13/18 10/14/18 10/14/18 18:59 06:59 18:59 Intake Total 480 10 118 Output Total 1000 400 Balance -520 -390 118 Weight 75.6 kg Intake: IV 10 0.9 10 Oral 480 118 Output: Urine 1000 400 Other: Voiding Method Urinal Urinal Urinal - Exam PHYSICAL EXAMINATION: GENERAL: 89-year-old gentleman in no acute distress at the time of my examination HEENT: Head is atraumatic, normocephalic. Pupils equal, round. Sclera anicteric. Conjunctiva are clear. Mucous membranes of the mouth are moist. Neck is supple. There is no elevated jugular venous pressure. No carotid bruit is heard. HEART EXAMINATION: Heart S1, S2 systolic murmur is heard . CHEST EXAMINATION: Lungs are clear to auscultation and precussion. No chest wall tenderness is noted on palpation or with deep breathing. ABDOMEN: Soft, nontender. Bowel sounds are heard. No organomegaly noted. EXTREMITIES: 2+ peripheral pulses with no evidence of peripheral edema and no calf tenderness noted. NEUROLOGIC patient is awake, alert and oriented 3 . . - Labs CBC & Chem 7: 10/14/18 06:01 10/14/18 06:01 Labs: Abnormal Lab Results - Last 24 Hours (Table) 10/13/18 10/13/18 10/14/18 Range/Units 16:11 20:27 06:01 RBC 3.31 L (4.30-5.90) m/uL Hgb 10.9 L (13.0-17.5) gm/dL Hct 33.6 L (39.0-53.0) % MCV 101.4 H (80.0-100.0) fL Chloride (98-107) mmol/L BUN (9-20) mg/dL Creatinine (0.66-1.25) mg/dL Glucose (74-99) mg/dL POC Glucose (mg/dL) 174 H 176 H (75-99) mg/dL 10/14/18 10/14/18 Range/Units 06:01 06:03 RBC (4.30-5.90) m/uL Hgb (13.0-17.5) gm/dL Hct (39.0-53.0) % MCV (80.0-100.0) fL Chloride 108 H (98-107) mmol/L BUN 31 H (9-20) mg/dL Creatinine 2.06 H (0.66-1.25) mg/dL Glucose 114 H (74-99) mg/dL POC Glucose (mg/dL) 128 H (75-99) mg/dL Assessment and Plan Plan: Assessment and plan #1 diastolic congestive heart failure acute on chronic #2 moderate aortic stenosis and moderate mitral regurgitation #3 uncontrolled hypertension #4 diabetes #5 hyperlipidemia #6 coronary artery disease with prior bypass surgery Plan Cardiology's perspective, we'll recommend to continue the patient on his current medications. We will continue to follow along with you. DNP note has been reviewed, I agree with a documented findings and plan of care. Patient was seen and examined.
[2018-10-14 12:42] VITALS: BP 150/68; PULSE 74; TEMP 97.7
[2018-10-14 17:04] LABS: Glucose,Whole Blood 110 mg/dL (75-99)
--- NOTE | 2018-10-15 08:38 | DS ---
DISCHARGE SUMMARY DATE OF SERVICE: 10/14/2018 FINAL DIAGNOSES: 1. Shortness of breath, possible congestive heart failure acute exacerbation with acute on chronic diastolic dysfunction, ejection fraction 50 to 60%. 2. Moderate aortic stenosis, moderate tricuspid regurgitation on the 2D echo. 3. Increased creatinine with chronic kidney stage 3. 4. Mild anemia. 5. Increased MCV. 6. History of coronary artery disease. 7. Diabetes mellitus type 2. 8. Gastroesophageal reflux disease. 9. Hypertension. 10.Hyperlipidemia. 11.History of myocardial infarction. 12.History of coronary artery disease, coronary artery bypass grafting. 13.Remote history of nicotine dependence. 14.NO CODE, NO CPR, NO VENT. DISCHARGE DISPOSITION: The patient is being discharged in stable condition with guarded prognosis. HISTORY OF PRESENT ILLNESS: This 87-year-old gentleman with a past medical history of multiple medical problems was admitted with CHF acute exacerbation, treated with diuretics. Closely followed with Cardiology. The patient improved significantly. Patient being discharged home in stable condition with guarded prognosis. PHYSICAL EXAMINATION: CARDIOVASCULAR: S1, S2. Vital signs stable. Abdomen soft. Nervous system: No focal deficits. Currently the creatinine is 2.6. Recommend close outpatient followup at this time. DISCHARGE ADVICE AND MEDICATIONS: 1. Diet is cardiac diet. 2. Activity limited until followup. 3. Follow up with Dr. Ramsay in 2-3 days. 4. Follow up with Cardiology as recommended. MEDICATIONS: 1. Zyloprim 100 mg p.o. daily. 2. Xanax 0.5 b.i.d. p.r.n. 3. Norvasc 5 mg p.o. b.i.d. 4. Lotensin 20 mg p.o. daily. 5. Vitamin D3 1000 daily. 6. Plavix 75 mg daily. 7. Glucotrol XL 5 mg. 8. Apresoline 25 mg p.o. b.i.d. 9. Imdur 30 mg daily. 10.Multivitamins 1 p.o. daily. 11.Niaspan 1000 mg p.o. daily. 12.Nitrostat 0.4 sublingual p.r.n. 13.Prilosec 20 mg p.o. b.i.d. 14.Vitamin E 1000 mg p.o. daily. 15.Tylenol 500 mg q.6h p.r.n. 16.Augmentin 875 mg per 1 p.o. b.i.d. for 1 week. 17.Ecotrin 81 mg p.o. daily. 18.Coreg 12.5 mg p.o. b.i.d. 19.Lasix 40 mg p.o. daily. Once again, the patient is being discharged in stable condition with guarded prognosis. MMALEXANDER / AILEEN: [id number] / MTDD
== END 2018-10-14 17:46 | disposition home or self-care (01) | DRG 291 ==
LOC: EC 18:55 → 3SCARD 22:50
PROVIDERS: ADMIT Internal Medicine; ATTEND Internal Medicine
DX: I13.0 Hypertensive heart and chronic kidney disease with heart failure and stage 1 through stage 4 chronic kidney disease, or unspecified chronic kidney disease (principal); I50.33 Acute on chronic diastolic (congestive) heart failure; E11.22 Type 2 diabetes mellitus with diabetic chronic kidney disease; D64.9 Anemia, unspecified; E78.5 Hyperlipidemia, unspecified; I27.20 Pulmonary hypertension, unspecified; I08.2 Rheumatic disorders of both aortic and tricuspid valves; I25.2 Old myocardial infarction; Z87.891 Personal history of nicotine dependence; Z66 Do not resuscitate; I25.10 Atherosclerotic heart disease of native coronary artery without angina pectoris; K21.9 Gastro-esophageal reflux disease without esophagitis; N18.3 Chronic kidney disease, stage 3 (moderate); Z79.02 Long term (current) use of antithrombotics/antiplatelets; Z79.82 Long term (current) use of aspirin; Z79.84 Long term (current) use of oral hypoglycemic drugs; Z79.899 Other long term (current) drug therapy; Z82.49 Family history of ischemic heart disease and other diseases of the circulatory system; Z95.1 Presence of aortocoronary bypass graft
CPT/HCPCS: 36415; 71046; 80048; 80053; 81001; 82550; 82553; 83880; 84484; 85025; 85610; 85730; 93005; 93306; 96374; 99285